=== PATIENT | female | born 1940 | race Caucasian/White ===

== ENCOUNTER 2016-12-07 21:29 | Inpatient (IN) | payer OTHER ==
--- NOTE | 2016-12-07 21:29 | EDPHY ---
H & P Time Seen by Provider: 12/07/16 21:30 Constitutional: Initial Vital Signs Temperature (C) 37.7 C 12/07/16 21:44 Heart Rate 104 H 12/07/16 21:44 Respiratory Rate 22 H 12/07/16 21:44 Blood Pressure 164/99 H 12/07/16 21:44 O2 Sat (%) 92 12/07/16 21:44 O2 Delivery Mode Nasal Cannula O2 (L/minute) 4 Allergies/Adverse Reactions: folic acid Allergy (Verified 12/07/16 21:55) thiamine (vitamin B1) Allergy (Verified 12/07/16 21:54) Medical Decision Making ED Course/Re-evaluation: CHIEF COMPLAINT: Dyspnea HISTORY OF PRESENT ILLNESS: This patient is a 76 year old female with history of COPD who presents to the Emergency Department by EMS after her family witnessed worsening dyspnea with productive cough this afternoon. She tells me that she feels that she has been getting a cold over the past few days and reports intermittent chills and bilateral lower leg pain. She also reports leg weakness causing her to collapse twice today. She denies urinary complaints. She did have a flu shot this year and has a pneumonia vaccine previously. REVIEW OF SYSTEMS: A 10 point review of systems was performed and is negative with the exception of the elements mentioned in the history of present illness. PHYSICAL EXAM: HR 104, BP 164/99, O2 Sat 92%, RR 22. Temp noted General Appearance: Alert, well hydrated, and appropriate. Head: Atraumatic without scalp tenderness or obvious injury Eyes: Pupils equal, round, reactive to light and accommodation, EOMI, no trauma , no injection. Ears: Clear bilaterally, no perforation, normal landmarks Nose: Atraumatic, no rhinorrhea, clear. Throat: There is no erythema or exudates, no lesions, normal tonsils, mucus membranes moist. Neck: Supple, 2+ carotid upstroke, nontender, no lymphadenopathy. Respiratory: Inspiratory and expiratory wheezes and coarse rhonchi throughout. Cardiovascular: Regular rate and rhythm, no murmurs, rubs, or gallops. Bilateral carotid, radial, dorsalis pedis, and posterior tibial pulses intact. Good capillary refill all extremities. Gastrointestinal: Abdomen is soft, nontender, non-distended, no masses, no rebound, no guarding, no peritoneal signs. Musculoskeletal: Normal active ROM of all extremities, atraumatic. Neurological: Alert, appropriate, and interactive. The patient has normal DTRs and non-focal cranial nerves, motor, sensory, and cerebellar exam. Skin: No rashes, good turgor, no nodules on palpation. Past medical history: COPD, emphysema, chronic low back pain with sciatic pain. Past surgical history: Denies. Family history: Non-contributory. Social history: Smokes regularly 0.5 pack daily. DIAGNOSTICS/PROCEDURES/CRITICAL CARE TIME: IMAGING: Study: X-ray of the chest Indication: Dyspnea Results: Chest x-ray was obtained. The results of the study are: The study was read by the radiologist, . I viewed the images myself on the PACS system. DIFFERENTIAL DIAGNOSIS: The differential diagnosis for the patient's shortness of breath included but was not limited to pneumonia, bronchitis, myocardial infarction, COPD exacerbation, high altitude pulmonary edema, congestive heart failure, and pulmonary embolus. MEDICAL DECISION MAKING: This patient is a 66 year old female with history of COPD and emphysema who arrives by EMS for worsening dyspnea over the past 2-3 days. She reports a productive cough, intermittent chills, and nasal congestion. On exam, she has wheezes and coarse rhonchi throughout. She is tachypneic with a respiratory rate of 22, tachycardic at 104, and hypertensive at 164/99. Will proceed with DuoNeb and steroid treatment for dyspnea and obtain labs (including sepsis workup) and chest x-ray for further evaluation. 2131: Took EMS report at bedside: O2 saturation at 92% on nasal cannula, up to 98% with continuous nebulizer treatment in transport. She reports that this is at baseline for her. 10 mg of IV Decadron and DuoNeb administered for dyspnea. Patient is not septic. Patient will be admitted due to hypoxemia and worsening difficulty in breathing in this patient with significant COPD and emphysema who is still a pack and half a day smoker. I have given this patient 1 g of ceftriaxone 500 mg of Zithromax. - Data Points Laboratory Results: Laboratory Results 12/07/16 21:40 12/07/16 12/07/16 12/07/16 21:50 21:40 21:40 PT 13.5 SEC SEC (12.0-15.0) INR 1.04 (0.83-1.16) APTT 21.3 SEC L SEC (23.0-38.0) VBG Lactic Acid 0.8 mmol/L mmol/L (0.7-2.1) Sodium 136 mEq/L mEq/L (134-144) Potassium 4.2 mEq/L mEq/L (3.5-5.2) Chloride 102 mEq/L mEq/L (97-110) Carbon Dioxide 21 mEq/l L mEq/l (22-31) Anion Gap 13 mEq/L mEq/L (8-16) BUN 16 mg/dL mg/dL (7-23) Creatinine 1.1 mg/dL H mg/dL (0.6-1.0) Estimated GFR 48 Glucose 114 mg/dL H mg/dL (70-100) Calcium 9.8 mg/dL mg/dL (8.5-10.4) Total Bilirubin 0.6 mg/dL mg/dL (0.1-1.4) Troponin I Pending NT-Pro-B Natriuret Pep Pending Medications Given: Discontinued Medications Albuterol/Ipratropium (Duoneb) 3 ml IH EDNOW ONE Stop: 12/07/16 21:36 Last Admin: 12/07/16 21:48 Dose: 3 ml Departure - Departure Disposition: [facility] Inpatient Acute Clinical Impression: Chronic obstructive pulmonary disease with acute exacerbation, Acute bronchitis Dyspnea Qualifiers: Dyspnea type: shortness of breath Qualified Code(s): R06.02 - Shortness of breath Condition: Fair Referrals: JOSE DE JESUS SNYDER MD [Other] - As per Instructions Report Scribed for: Kirk Flores Report Scribed by: Ladonna Calderón Date of Report: 12/07/16 Time of Report: 21:30
[2016-12-07] MEDS ORDERED: IPRATROPIUM/ALBUTEROL 3 ML DEYVIAL IH ONE (21:35)
[2016-12-07] MEDS ORDERED: DEXAMETHASONE 10 MG/ML VIAL IVP ONE (22:00)
[2016-12-07 22:03] LABS: ANION GAP 13 mEq/L (8-16); BILIRUBIN,TOTAL 0.6 mg/dL (0.1-1.4); CALCIUM 9.8 mg/dL (8.5-10.4); CARBON DIOXIDE 21 mEq/l (22-31); CHLORIDE 102 mEq/L (97-110); CREATININE 1.1 mg/dL (0.6-1.0); GLOMERULAR FILTRATION RATE 48; GLUCOSE 114 mg/dL (70-100); INR 1.04 (0.83-1.16); POTASSIUM 4.2 mEq/L (3.5-5.2); PROTIME(PATIENT) 13.5 SEC (12.0-15.0); SODIUM 136 mEq/L (134-144)
[2016-12-07 22:04] LABS: APTT 21.3 SEC (23.0-38.0)
[2016-12-07] MEDS ORDERED: AZITHROMYCIN IV 500 MG in D5W 250 ML IV ONE (22:08)
[2016-12-07 22:15] LABS: TROPONIN I 0.021 ng/mL (0-0.034)
[2016-12-07 22:37] LABS: % IMMATURE GRANULYOCYTES 0.4 % (0.0-1.1); ABSOLUTE IMMATURE GRANULOCYTES 0.02 10^3/uL (0.00-0.10); ADD DIFF? NO; ADD MORPH? NO; ADD SCAN? NO; ATYPICAL LYMPHOCYTE FLAG 10 (0-99); FRAGMENT RBC FLAG 0 (0-99); HEMATOCRIT 39.1 % (38.0-47.0); HEMOGLOBIN 12.9 g/dL (12.6-16.3); LEFT SHIFT FLG 0 (0-99); LIPEMIA HEMOLYSIS FLAG 80 (0-99); MEAN CELL HEMOGLOBIN 28.4 pg (27.9-34.1); MEAN CELL VOLUME 86.1 fL (81.5-99.8); MEAN PLATELET VOLUME 9.8 fL (8.7-11.7); PLATELET CLUMPS FLAG 0 (0-99); PLATELET COUNT 247 10^3/uL (150-400); RED BLOOD CELL COUNT 4.54 10^6/uL (4.18-5.33); RED CELL DISTRIBUTION WIDTH 14.4 % (11.5-15.2)
--- NOTE | 2016-12-07 23:00 | CPEKG ---
Heart Rate: 92 RR Interval: 652 P-R Interval: 160 QRSD Interval: 90 QT Interval: 360 QTC Interval: 446 P [place]: 75 QRS [place]: -55 T Wave [place]: 66 EKG Severity - ABNORMAL ECG - EKG Impression: SINUS RHYTHM EKG Impression: ATRIAL PREMATURE COMPLEX EKG Impression: LEFT ANTERIOR FASCICULAR BLOCK Electronically Signed By: Stephen Kruse 08-Dec-2016 14:20:20
[2016-12-07] MEDS ORDERED: ONDANSETRON 4 MG/2 ML VIAL IVP PRN (23:04)
[2016-12-07] MEDS ORDERED: ONDANSETRON DISINTEGRATING 4 MG TAB PO PRN (23:04)
[2016-12-07] MEDS ORDERED: ACETAMINOPHEN 325 MG TAB PO PRN (23:04)
[2016-12-07] MEDS ORDERED: ALBUTEROL 3 ML DEYVIAL IH PRN (23:07)
[2016-12-07] MEDS ORDERED: D50W 25 GM/50 ML SYR IVP PRN (23:10)
[2016-12-08] MEDS ORDERED: TEMAZEPAM 15 MG CAP ONE (02:27)
--- NOTE | 2016-12-08 03:33 | PDGENHP ---
History and Physical - Chief Complaint increasing shortness of breath - History of Present Illness Patient was seen and examined on 12/07/2016. Patient a 76-year-old female with history of COPD, chronic respiratory failure on 3 L NC continuously, active tobacco use, hypertension, hyperlipidemia, DM2 and chronic lower back pain who presents to the ED with complaint of increasing shortness of breath. Patient states symptoms started about 2 or 3 days ago when she noticed increasing dyspnea with exertion and cough with increased sputum production. Symptoms were initially responsive to her home rescue albuterol inhaler, however over the past day she has been requiring it more frequently. She has also had to increase her O2 from 3 to 4 L due to low oxygen saturations. she denies any obvious fevers, chills, chest pain, abdominal pain, nausea, vomiting, diarrhea or urinary symptoms. She also denies any recent travel or sick contacts. In addition, patient is also complaining of generalized weakness especially of her lower extremities which has been chronic and due to increasing sciatic pain. The pain is worse on her left side radiating from her left lower back down her lateral thigh. On the day of presentation, patient reports she had fallen due to weakness/ pain in her lower extremities. She denies any incontinence, saddle anesthesia or obvious trauma to the area, feels it is a progression of her chronic pain. On arrival to the ED patient was afebrile, in mild to moderate respiratory distress with tachypnea, hypoxia and tachycardia. She was given IV steroids, nebulizer treatment and respiratory status improved significantly. Chest x-ray did not reveal any obvious infiltrate. Labs were also negative for leukocytosis and lactic acid was negative. Patient was then admitted to the hospitalist service for further History Information - Allergies/Home Medication List Allergies/Adverse Reactions: folic acid Allergy (Verified 12/07/16 22:18) Flushing thiamine (vitamin B1) Allergy (Verified 12/07/16 22:18) Rash Home Medications: Albuterol [Proventil Inhaler HFA (*)] 1 - 2 puffs IH Q4H PRN 12/07/16 [Last Taken 12/07/16] Alendronate Sodium [Fosamax 70 MG (*)] 70 mg PO SA@0700 12/07/16 [Last Taken ] Baclofen [Baclofen 10 mg (*)] 10 mg PO DAILY 12/07/16 [Last Taken 12/07/16] DULoxetine [Cymbalta 30 MG (*)] 30 mg PO DAILY 12/07/16 [Last Taken 12/07/16] Fenofibric Acid (Choline) [TRILIPIX] 135 mg PO DAILY 12/07/16 [Last Taken ] Losartan Potassium [Cozaar 50 mg (*)] 50 mg PO DAILY 12/07/16 [Last Taken ] Potassium Cl [Klor-Con 20 meq (*)] 20 meq PO DAILY 12/07/16 [Last Taken 12/07/16 ] Promethazine HCl [Phenergan 12.5mg tab] 12.5 mg PO DAILY PRN 12/07/16 [Last Taken 11/23/16] Simvastatin [Zocor] 10 mg PO DAILY 12/07/16 [Last Taken 12/07/16] Temazepam [Restoril 15 MG (*)] 15 mg PO HS 12/07/16 [Last Taken 12/06/16] Tiotropium Inhaler [Spiriva Handihaler] 18 mcg IH DAILY 12/07/16 [Last Taken ] metFORMIN HCL [Glucophage 500 mg (*)] 500 mg PO DAILY 12/07/16 [Last Taken 12/07] I have personally reviewed and updated: family history, medical history, social history, surgical history - Past Medical History Additional medical history: COPD. Chronic respiratory failure on 3 L continuous O2. HTN. HLD. DM 2 on oral meds only. chronic lower back pain, lumbar radiculopathy L worse than R - Surgical History Additional surgical history: 2 lumbar surgeries. R foot repair. appendectomy. L wrist repair - Family History Additional family history: Daughter : CHF/CAD - Social History Smoking Status: Heavy smoker (2-3 PPD x 60 years) Alcohol Use: None Drug Use: None Additional social history: patient currently lives with her daughter and her son -in-law, uses a cane or walker to ambulate when outside of her home Review of Systems ROS: 10pt was reviewed & negative except for what was stated in HPI & below Physical Exam Temp Pulse Resp BP Pulse Ox 36.6 C 80 27 H 144/75 H 90 L 12/08/16 02:24 12/08/16 02:24 12/08/16 02:24 12/08/16 02:24 12/08/16 02:24 O2 (L/minute) 4 Constitutional: no apparent distress, appears nourished, not in pain, obese Eyes: PERRL, anicteric sclera, EOMI Ears, Nose, Mouth, Throat: moist mucous membranes, hearing normal, ears appear normal, no oral mucosal ulcers Cardiovascular: regular rate and rhythym, no murmur, rub, or gallop, pulses symmetric bilaterally, No JVD, No edema Peripheral Pulses: 2+: dorsalis-pedis (R), dorsalis-pedis (L) Respiratory: no respiratory distress, no rales or rhonchi, expiratory wheeze Gastrointestinal: normoactive bowel sounds, soft, non-tender abdomen, no palpable masses, No guarding, No rebound, No distension Genitourinary: no bladder fullness, no bladder tenderness Skin: warm, normal color, no rashes or abrasions, no fluctuance, no induration, No mottled Musculoskeletal: full muscle strength, no muscle tenderness, normal joint ROM, no joint effusions Neurologic: AAOx3, sensation intact bilaterally, CN II-XII Intact, No weakness, No numbness, No facial droop Psychiatric: interacting appropriately, not anxious, not encephalopathic, thought process linear Lab Data & Imaging Review 12/08/16 04:56 12/07/16 21:40 WBC 5.11 10^3/uL (3.80-9.50) 12/07/16 22:30 RBC 4.54 10^6/uL (4.18-5.33) 12/07/16 22:30 Hgb 12.9 g/dL (12.6-16.3) 12/07/16 22:30 Hct 39.1 % (38.0-47.0) 12/07/16 22:30 MCV 86.1 fL (81.5-99.8) 12/07/16 22:30 MCH 28.4 pg (27.9-34.1) 12/07/16 22:30 MCHC 33.0 g/dL (32.4-36.7) 12/07/16 22:30 RDW 14.4 % (11.5-15.2) 12/07/16 22:30 Plt Count 247 10^3/uL (150-400) 12/07/16 22:30 MPV 9.8 fL (8.7-11.7) 12/07/16 22:30 Neut % (Auto) 66.1 % (39.3-74.2) 12/07/16 22:30 Lymph % (Auto) 18.4 % (15.0-45.0) 12/07/16 22:30 [place] % (Auto) 14.7 % (4.5-13.0) H 12/07/16 22:30 Eos % (Auto) 0.0 % (0.6-7.6) L 12/07/16 22:30 Baso % (Auto) 0.4 % (0.3-1.7) 12/07/16:30 Nucleat RBC Rel Count 0.0 % (0.0-0.2) 12/07/16 22:30 Absolute Neuts (auto) 3.38 10^3/uL (1.70-6.50) 12/07/16 22:30 Absolute Lymphs (auto) 0.94 10^3/uL (1.00-3.00) L 12/07/16 22:30 Absolute Monos (auto) 0.75 10^3/uL (0.30-0.80) 12/07/16 22:30 Absolute Eos (auto) 0.00 10^3/uL (0.03-0.40) L 12/07/16 22:30 Absolute Basos (auto) 0.02 10^3/uL (0.02-0.10) 12/07/16 22:30 Absolute Nucleated RBC 0.00 10^3/uL (0-0.01) 12/07/16 22:30 Immature Gran % 0.4 % (0.0-1.1) 12/07/16 22:30 Immature Gran # 0.02 10^3/uL (0.00-0.10) 12/07/16 22:30 PT 13.5 SEC (12.0-15.0) 12/07/16 21:40 INR 1.04 (0.83-1.16) 12/07/16 21:40 APTT 21.3 SEC (23.0-38.0) L 12/07/16:40 VBG Lactic Acid 0.8 mmol/L (0.7-2.1) 12/07/16 21:50 Sodium 136 mEq/L (134-144) 12/07/16 21:40 Potassium 4.2 mEq/L (3.5-5.2) 12/07/16 21:40 Chloride 102 mEq/L (97-110) 12/07/16 21:40 Carbon Dioxide 21 mEq/l (22-31) L 12/07/16 21:40 Anion Gap 13 mEq/L (8-16) 12/07/16 21:40 BUN 16 mg/dL (7-23) 12/07/16 21:40 Creatinine 1.1 mg/dL (0.6-1.0) H 12/07/16 21:40 Estimated GFR 48 12/07/16 21:40 Glucose 114 mg/dL (70-100) H 12/07/16 21:40 Calcium 9.8 mg/dL (8.5-10.4) 12/07/16 21:40 Total Bilirubin 0.6 mg/dL (0.1-1.4) 12/07/16 21:40 Troponin I 0.021 ng/mL (0-0.034) 12/07/16 21:40 NT-Pro-B Natriuret Pep 787 pg/mL (0-450) H 12/07/16 21:40 Visualized and Interpreted Chest x-ray results: Yes Chest X-Ray results: no infiltrate, other ( Mild pulmonary edema) Visualized and Interpreted EKG results: Yes EKG Interpretation: Positive for: normal sinsus rhythm Assessment & Plan Assessment: patient is a 76-year-old female with history of COPD, on chronic home O2, active tobacco use who presents to the ED with complaint of increasing shortness of breath and cough. Symptoms appear consistent with an acute COPD exacerbation. Plan: # acute on chronic respiratory failure Given patient's presentation with tachypnea, wheezing and respiratory distress that improved significantly with IV steroids and nebulizer treatments, acute respiratory failure appears consistent with an acute COPD exacerbation. Given elevated BNP, differential also includes acute CHF / fluid overload, however patient denies history of CHF. Will treat for COPD exacerbation with PO steroids, continuous and prn nebs as well as supplemental O2. Will also check TTE and consider initiating diuresis. # active, continuous tobacco use Patient was advised extensively on the risks of continued tobacco use especially with continuous O2 use. She expressed understanding of the risks. She was also offered nicotine replacement therapy, however has declined at this time. # chronic lumbar radiculopathy Patient reports chronic left-sided sciatic pain that has significantly worsened recently. She has no red flag signs or symptoms on exam during this presentation, and is nonfocal. Will obtain PT OT consult for further ambulatory recommendations. # chronic hypertension BP slightly elevated on presentation, however, likely due to acute respiratory distress and has stabilized. Will confirm and continue home meds. # DM2 Will monitor FS TIDAC and cover with sliding scale insulin. # dispo: admit to inpatient service for likely > 2 [place] stay # gen: Diabetic diet DVT ppx: lovenox DNR
[2016-12-08 05:32] LABS: % IMMATURE GRANULYOCYTES 0.3 % (0.0-1.1); ABSOLUTE IMMATURE GRANULOCYTES 0.01 10^3/uL (0.00-0.10); ADD DIFF? NO; ADD MORPH? NO; ADD SCAN? NO; ATYPICAL LYMPHOCYTE FLAG 0 (0-99); FRAGMENT RBC FLAG 0 (0-99); HEMATOCRIT 38.3 % (38.0-47.0); HEMOGLOBIN 12.8 g/dL (12.6-16.3); LEFT SHIFT FLG 0 (0-99); LIPEMIA HEMOLYSIS FLAG 80 (0-99); MEAN CELL HEMOGLOBIN 28.8 pg (27.9-34.1); MEAN CELL HEMOGLOBIN CONCENTR. 33.4 g/dL (32.4-36.7); MEAN CELL VOLUME 86.1 fL (81.5-99.8); MEAN PLATELET VOLUME 10.3 fL (8.7-11.7); PLATELET CLUMPS FLAG 0 (0-99); PLATELET COUNT 242 10^3/uL (150-400); RED BLOOD CELL COUNT 4.45 10^6/uL (4.18-5.33); RED CELL DISTRIBUTION WIDTH 14.5 % (11.5-15.2)
[2016-12-08 05:50] LABS: MAGNESIUM 1.8 mg/dL (1.6-2.3)
[2016-12-08] MEDS: IPRATROPIUM/ALBUTEROL 3 ML DEYVIAL IH SCH ×4 (05:56→21:20)
[2016-12-08 06:02] LABS: TROPONIN I 0.018 ng/mL (0-0.034)
[2016-12-08] MEDS ORDERED: AZITHROMYCIN IV 500 MG in D5W 250 ML IV SCH (09:00)
[2016-12-08] MEDS ORDERED: predniSONE 20 MG TAB PO SCH (09:00)
[2016-12-08] MEDS: oxyCODONE IR 5 MG TAB PO PRN ×2 (09:38→12:30)
[2016-12-08] MEDS: AZITHROMYCIN 250 MG TAB PO SCH (09:41)
[2016-12-08] MEDS: DULoxetine 30 MG CAP PO SCH (09:42)
[2016-12-08] MEDS: BACLOFEN 10 MG TAB PO SCH (09:42)
[2016-12-08] MEDS: PRAVASTATIN SODIUM 20 MG TAB PO SCH (09:43)
[2016-12-08] MEDS: FENOFIBRATE 145 MG TAB PO SCH (09:43)
[2016-12-08] MEDS: ENOXAPARIN 40 MG/0.4 ML SYR SC SCH (09:43)
[2016-12-08] MEDS: LOSARTAN POTASSIUM 50 MG TAB PO SCH (09:50)
[2016-12-08] MEDS: INSULIN LISPRO 100 UNIT/ML SC SCH ×3 (09:53→18:21)
[2016-12-08] MEDS: TIOTROPIUM INHALER 18 MCG/DOSE 5 DOSE/MDI IH SCH (10:34)
[2016-12-08] MEDS ORDERED: TEMAZEPAM 15 MG CAP PO PRN (11:24)
[2016-12-08] MEDS ORDERED: CARBAMIDE PEROXIDE 15 ML BOTTLE RTEAR SCH (12:15)
[2016-12-08 12:52] LABS: HEMOGLOBIN A1C 5.9 % (4.0-6.0)
[2016-12-08 12:58] LABS: GLUCOSE 194 mg/dL (70-100)
--- NOTE | 2016-12-08 16:50 | HOSPPROG ---
Hospitalist Progress Note Assessment/Plan: #COPD exacerbation: likely due to bronchitis. Check influenza. Cont Azithro, pred, duonebs #Impacted right ear: cerumen on exam. Trial debrox gtts #Controlled DM with hyperglycemia;: due to steroids. SSI #Low TSH: normal T4, minimally lowered T3. Repeat enzymes in 2-3 weeks. If still low, can do U/S Subjective: feeling less SOB today Objective: Vital Signs Temp Pulse Resp BP Pulse Ox 36.7 C 63 16 146/74 H 94 12/08/16 15:07 12/08/16 16:20 12/08/16 16:20 12/08/16 15:07 12/08/16 16:20 Laboratory Results 12/08/16 04:56 12/08/16 12:20 12/07/16 12/08/16 12/09/16 05:59 05:59 05:59 Intake Total 300 250 Balance 300 250 PT 13.5 SEC (12.0-15.0) 12/07/16 21:40 INR 1.04 (0.83-1.16) 12/07/16 21:40 - Physical Exam Constitutional: no apparent distress Eyes: PERRL Ears, Nose, Mouth, Throat: other (significant cerumen right ear canal) ICD10 Worksheet Patient Problems: Problems Problem Status Onset Acute bronchitis Acute Chronic obstructive pulmonary disease with acute exacerbation Acute Dyspnea Acute
--- NOTE | 2016-12-08 17:11 | ECHO ---
[id number] + + [address] : : [place] [id number] : : [phone] + + Adult Echocardiographic Report + + :Name: ALONDRA OROZCO MStudy Date: 12/08/2016 10:37 AM BP: 133/69 mmHg : : Hospital Admission Number: [id number] Lo cation: 386: :: 1940 Gender: Female Height: 65 in : :Age: 76 yrs Race: Weight: 18 5 lb : :Reason For Study: r/o cardiomyopathy : : BSA: 1.9 m eters2 : :History: elev BNP : + + MMode/2D Measurements \T\ Calculations IVSd: 1.2 cm RVDd: 2.3 cm FS: 37.0 % Ao root diam: LVPWd: 1.1 cm LVIDd: 3.7 cm EDV(Teich): 2.5 cm LVIDs: 2.4 cm 59.6 ml LA dimension: ESV(Teich): 3.4 cm 19.3 ml EF(Teich): 67.7 % LVLd ap4: 9.2 cm SV(MOD-sp4): EDV(MOD-sp4): 103.0 ml 147.0 ml LVLs ap4: 7.2 cm ESV(MOD-sp4): 44.0 ml EF(MOD-sp4): 70.1 % Normal Measurement Values: + + :LVIDd (3.5-5.7cm) IVSd (0.6-1.1cm) LVPWd (0.6-1.1cm) Aortic Root (2.0-3.7cm)Left Atrium (1.5-4.0cm): :LV Vol(d) (76-115ml) LV Vol(s) (29-48ml) Ejec Fraction (50-65%)PV Varghese (0.6- 1.2m/s) TV Varghese (0.4-1.0m/s) : :MV E [place]arg[place]se (0.8-1.0m/s)MV A [place]se (0.3-1.0m/s)LVOT V[place]se (0.7-1.2m/s) Asc Ao Varghese ( 0.9-1.8m/s) : + + Doppler Measurements \T\ Calculations MV E max varghese: Ao V2 max: LV V1 max: PA V2 max: 85.4 cm/sec 161.0 cm/sec 106.1 cm/sec 115.4 cm/sec MV A max varghese: Ao max PG: LV V1 max PG: PA max P.0 cm/sec 10.4 mmHg 4.5 mmHg 5.3 mmHg MV E/A: 0.72 MV dec time: 0.21 sec Left Ventricle The left ventricle is normal in size and function. There is mild concentric left ventricular hypertrophy. Ejection Fraction = 65-70%. There is Doppler evidence for diastolic dysfunction. No regional wall motion abnormalities noted. Right Ventricle The right ventricle is normal in size and function. Atria The left atrial size is normal. Right atrial size is normal. Mitral Valve The mitral valve is normal in structure and function. There is no mitral valve stenosis. There is trace to mild mitral regurgitation. Tricuspid Valve The tricuspid valve is normal in structure and function. There is no tricuspid stenosis. There is trace tricuspid regurgitation. Aortic Valve Most likely trileaflet. There is no aortic stenosis. There is no aortic insufficiency. Pulmonic Valve The pulmonic valve is not well visualized. Great Vessels The aortic root is normal size. Pericardium/Pleural There is no pericardial effusion. Conclusion A two-dimensional transthoracic echocardiogram with M-mode and Doppler was performed. The left ventricle is normal in size and function. There is mild concentric left ventricular hypertrophy. Ejection Fraction = 65-70%. There is Doppler evidence for diastolic dysfunction. Trace to mild mitral regurgitation and trace tricuspid regurgitation. Final Reading Physician: Ryan Ibarra, Melectronically signed on 12/08/2016 05:09 PM Ordering Physician: Isabell Alcantar Performed By: Aspen Cardona
[2016-12-08 17:59] LABS: COLOR YELLOW; LEUKOCYTE ESTERASE,URINE NEGATIVE (NEGATIVE); NITRITE,URINE NEGATIVE (NEGATIVE)
[2016-12-08 18:10] LABS: BACTERIA TRACE /hpf (NONE SEEN); MUCUS TRACE /lpf (NONE-1+)
[2016-12-08] MEDS ORDERED: TEMAZEPAM 15 MG CAP PO SCH (21:00)
[2016-12-08] MEDS: CARBAMIDE PEROXIDE 15 ML BOTTLE RTEAR SCH (22:47)
[2016-12-09] MEDS: OSELTAMIVIR PHOSPHATE 75 MG CAP PO SCH ×2 (00:42→09:37)
[2016-12-09] MEDS ORDERED: guaiFENesin 600 MG TAB.ER PO SCH (05:00)
[2016-12-09] MEDS: oxyCODONE IR 5 MG TAB PO PRN (05:14)
[2016-12-09] MEDS: IPRATROPIUM/ALBUTEROL 3 ML DEYVIAL IH SCH ×2 (05:31→10:08)
[2016-12-09 06:08] LABS: % IMMATURE GRANULYOCYTES 0.2 % (0.0-1.1); ABSOLUTE IMMATURE GRANULOCYTES 0.01 10^3/uL (0.00-0.10); ADD DIFF? NO; ADD MORPH? NO; ADD SCAN? NO; ATYPICAL LYMPHOCYTE FLAG 0 (0-99); FRAGMENT RBC FLAG 0 (0-99); HEMATOCRIT 38.1 % (38.0-47.0); HEMOGLOBIN 11.8 g/dL (12.6-16.3); LEFT SHIFT FLG 0 (0-99); LIPEMIA HEMOLYSIS FLAG 80 (0-99); MEAN CELL HEMOGLOBIN 28.2 pg (27.9-34.1); MEAN CELL VOLUME 90.9 fL (81.5-99.8); MEAN PLATELET VOLUME 10.1 fL (8.7-11.7); PLATELET CLUMPS FLAG 0 (0-99); PLATELET COUNT 219 10^3/uL (150-400); RED BLOOD CELL COUNT 4.19 10^6/uL (4.18-5.33); RED CELL DISTRIBUTION WIDTH 14.2 % (11.5-15.2)
[2016-12-09 06:32] LABS: ALANINE AMINOTRANSFERASE 27 IU/L (9-52); ALBUMIN 3.4 g/dL (3.5-5.0); ALKALINE PHOSPHATASE 59 IU/L (38-126); ANION GAP 12 mEq/L (8-16); ASPARTATE AMINOTRANSFERASE 22 IU/L (14-46); BILIRUBIN,TOTAL 0.4 mg/dL (0.1-1.4); CALCIUM 9.5 mg/dL (8.5-10.4); CARBON DIOXIDE 21 mEq/l (22-31); CHLORIDE 108 mEq/L (97-110); CREATININE 0.9 mg/dL (0.6-1.0); GLOMERULAR FILTRATION RATE > 60; GLUCOSE 102 mg/dL (70-100); POTASSIUM 4.3 mEq/L (3.5-5.2); SODIUM 141 mEq/L (134-144); TOTAL PROTEIN 6.3 g/dL (6.3-8.2)
[2016-12-09] MEDS ORDERED: predniSONE 20 MG TAB PO SCH (09:00)
[2016-12-09] MEDS: INSULIN LISPRO 100 UNIT/ML SC SCH ×2 (09:23→15:17)
[2016-12-09] MEDS: CARBAMIDE PEROXIDE 15 ML BOTTLE RTEAR SCH (09:33)
[2016-12-09] MEDS: ENOXAPARIN 40 MG/0.4 ML SYR SC SCH (09:35)
[2016-12-09] MEDS: LOSARTAN POTASSIUM 50 MG TAB PO SCH (09:37)
[2016-12-09] MEDS: BACLOFEN 10 MG TAB PO SCH (09:37)
[2016-12-09] MEDS: PRAVASTATIN SODIUM 20 MG TAB PO SCH (09:37)
[2016-12-09] MEDS: FENOFIBRATE 145 MG TAB PO SCH (09:38)
[2016-12-09] MEDS: DULoxetine 30 MG CAP PO SCH (09:39)
[2016-12-09] MEDS: AZITHROMYCIN 250 MG TAB PO SCH (09:40)
[2016-12-09] MEDS: TIOTROPIUM INHALER 18 MCG/DOSE 5 DOSE/MDI IH SCH (10:08)
[2016-12-09 11:32] VITALS: BP 149/72; PULSE 86; RESP 16; TEMP 97.9; O2SAT 91
--- NOTE | 2016-12-09 12:49 | HOSPPROG ---
Hospitalist Progress Note Assessment/Plan: #COPD exacerbation: likely due to Influenza B. Cont , pred, duonebs #Influenza B: Tamiflu x 5 days #Impacted right ear: cerumen on exam. Trial debrox gtts #Controlled DM with hyperglycemia;: due to steroids. SSI #Low TSH: normal T4, minimally lowered T3. Repeat enzymes in 2-3 weeks. If still low, can do U/S #DC today Objective: Vital Signs Temp Pulse Resp BP Pulse Ox 36.6 C 86 16 149/72 H 91 L 12/09/16 11:30 12/09/16 11:30 12/09/16 11:30 12/09/16 11:30 12/09/16 11:30 Laboratory Results 12/09/16 05:36 12/09/16 05:36 12/08/16 12/09/16 12/10/16 05:59 05:59 05:59 Intake Total 300 690 Output Total 1750 Balance 300 -1060 PT 13.5 SEC (12.0-15.0) 12/07/16 21:40 INR 1.04 (0.83-1.16) 12/07/16 21:40 - Physical Exam Constitutional: no apparent distress Eyes: PERRL Ears, Nose, Mouth, Throat: moist mucous membranes Cardiovascular: regular rate and rhythym Respiratory: no respiratory distress, other (improved air movement, mild expiratory wheezing) Gastrointestinal: normoactive bowel sounds Genitourinary: no bladder fullness Musculoskeletal: full muscle strength Neurologic: AAOx3 Psychiatric: interacting appropriately ICD10 Worksheet Patient Problems: Problems Problem Status Onset Acute bronchitis Acute Chronic obstructive pulmonary disease with acute exacerbation Acute Dyspnea Acute
--- NOTE | 2016-12-09 13:23 | GDS ---
[f rep st] DISCHARGE SUMMARY DISCHARGE DIAGNOSES: 1. Chronic obstructive pulmonary disease exacerbation 2. acute on chronic hypoxemia with respiratory failure. 3. Influenza B. 4. Chronic lumbar radiculopathy. 5. Benign hypertension. 6. Controlled diabetes type 2. 7. Tobacco use. 8. Hyperlipidemia. HISTORY OF PRESENT ILLNESS: Patient is a 76-year-old female with a history of COPD, chronic respiratory failure on 3 L, and tobacco use, who presents to the ED with increasing shortness of breath. Symptoms started 2 days ago when she noticed dyspnea with exertion, cough, and increased sputum production. Symptoms were initially responsive to home rescue inhaler; however, she has had to use it more frequently and increase her O2 from 3-4 L. She denies fevers, chills, sweats, chest pain. No nausea, vomiting, or diarrhea. She does report generalized weakness in her lower extremities. HOSPITAL COURSE BY PROBLEM: 1. COPD exacerbation: Secondary to influenza B. The patient was requiring increased oxygen needs and DuoNeb. Day of discharge, she states that she feels at her baseline and would like to go home. We will continue 3 more days of prednisone. She is to resume her home inhalers. I emphasized the importance of smoking cessation. 2. Influenza B: This was checked the second day of admission. We will treat with Tamiflu for 5 days' total. 3. [id number]-wa-tjburro hypoxemic respiratory failure: Again, secondary to COPD exacerbation. Patient is stable on her home 3 L. 4. Deconditioning: PT/OT recommends home physical therapy. Will arrange for this if the patient agrees. 5. Chronic back pain: Continue home medications. 6. Cough: Due to influenza. P.r.n. guaifenesin and Robitussin. 7. Controlled diabetes: Continue home medications. 8. Benign hypertension: Stable. 9. Subclinical hyperthyroidism: no symptoms. mildly low TSH/ T3, T4 normal. Repeat in 4 weeks DISPOSITION: Patient is stable for discharge. NEW MEDICATIONS: Tamiflu, Robitussin, and guaifenesin. FU: repeat thyroid studies /[id number]/MODL MTDD
--- NOTE | 2016-12-09 14:19 | PDIAF ---
- Diagnosis Code Status: Do Not Resuscitate - Medication Management Discharge Medications: Medications to Continue on Transfer Albuterol [Proventil Inhaler HFA (*)] 1 - 2 puffs IH Q4H PRN 12/07/16 [Last Taken 12/07/16] Alendronate Sodium [Fosamax 70 MG (*)] 70 mg PO SA@0700 12/07/16 [Last Taken ] Baclofen [Baclofen 10 mg (*)] 10 mg PO DAILY 12/07/16 [Last Taken 12/07/16] DULoxetine [Cymbalta 30 MG (*)] 30 mg PO DAILY 12/07/16 [Last Taken 12/07/16] Fenofibric Acid (Choline) [TRILIPIX] 135 mg PO DAILY 12/07/16 [Last Taken ] Losartan Potassium [Cozaar 50 mg (*)] 50 mg PO DAILY 12/07/16 [Last Taken ] Potassium Cl [Klor-Con 20 meq (*)] 20 meq PO DAILY 12/07/16 [Last Taken 12/07/16 ] Promethazine HCl [Phenergan 12.5mg tab] 12.5 mg PO DAILY PRN 12/07/16 [Last Taken 11/23/16] Simvastatin [Zocor] 10 mg PO DAILY 12/07/16 [Last Taken 12/07/16] Temazepam [Restoril 15 MG (*)] 15 mg PO HS 12/07/16 [Last Taken 12/06/16] Tiotropium Inhaler [Spiriva Handihaler] 18 mcg IH DAILY 12/07/16 [Last Taken ] metFORMIN HCL [Glucophage 500 mg (*)] 500 mg PO DAILY 12/07/16 [Last Taken 12/07] Menthol [Robitussin Cough Drops] 1 each MM PRN PRN #15 lozenge 12/09/16 [Last Taken Unknown] Oseltamivir Phosphate [Tamiflu 75 mg (*)] 75 mg PO BIDMEAL #8 cap 12/09/16 [ Last Taken Unknown] guaiFENesin [Mucinex 600 MG (*)] 1,200 mg PO BID #20 tab.er 12/09/16 [Last Taken Unknown] predniSONE 40 mg PO DAILY #6 tablet 12/09/16 [Last Taken Unknown] Discharge Medications: Refer to the Discharge Home Medication list for PRN reason. - Orders Services needed: Home Care, Physical Therapy Home Care Face to Face: I certify that this patient was under my care and that I had the required [id number] encounter meeting the encounter requirements on the discharge day. My findings support the fact that the patient is homebound as defined in CMS Chapter 7 Medicare Benefits Manual 30.1.1, The condition of the patient is such that there exists a normal inability to leave home and consequently, leaving home would require a considerable and taxing effort. Diet Recommendation: cardiac -low fat low salt Diet Texture: Regular Texture Diet - Follow Up Care Current Providers and Referrals: JOSE DE JESUS SNYDER MD [Other] - As per Instructions
[2016-12-11] MEDS ORDERED: ALENDRONATE SODIUM 70 MG TAB PO SCH (07:00)
== END 2016-12-09 15:22 | disposition home health service (06) | DRG 190 ==
LOC: OBSVTOIN 22:52 → F3E 12-08 01:30
PROVIDERS: ADMIT Internal Medicine; ATTEND Internal Medicine
DX: J44.1 Chronic obstructive pulmonary disease with (acute) exacerbation (principal); J44.0 Chronic obstructive pulmonary disease with (acute) lower respiratory infection; J96.21 Acute and chronic respiratory failure with hypoxia; J10.1 Influenza due to other identified influenza virus with other respiratory manifestations; F17.210 Nicotine dependence, cigarettes, uncomplicated; J43.9 Emphysema, unspecified; Z99.81 Dependence on supplemental oxygen; I10 Essential (primary) hypertension; E78.5 Hyperlipidemia, unspecified; E11.65 Type 2 diabetes mellitus with hyperglycemia; M54.32 Sciatica, left side; H61.21 Impacted cerumen, right ear
CPT/HCPCS: 82947-QW; 84481-90; 97161-GP; G8978-GP-CI; G8979-GP-CI; J0456; J0696; J1650; J1815

== ENCOUNTER 2017-02-13 17:45 | Inpatient (IN) | payer OTHER, MEDICAID ==
[2017-02-13] MEDS ORDERED: ACETAMINOPHEN 650 MG SUPP PR ONE ×2 (17:59→18:01)
[2017-02-13] MEDS ORDERED: IPRATROPIUM/ALBUTEROL 3 ML DEYVIAL IH ONE (18:00)
[2017-02-13] MEDS ORDERED: IPRATROPIUM/ALBUTEROL 3 ML DEYVIAL ONE (18:01)
--- NOTE | 2017-02-13 18:03 | EDPHY ---
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 They were at an outside festival this afternoon the patient became diffusely weak, she had to be pushed in her walker chair, which is unusual for her. She has oxygen that she is post aware at all times but did not have it with her. Her daughter then noted that she was speaking gibberish, not making sense. Her daughter thought that she might have some facial weakness. Patient denies any headache. REVIEW OF SYSTEMS: A ten point review of systems was performed and is negative with the exception of the items mentioned in the HPI. Source: Family - Medical/Surgical History Hx Asthma: Yes Hx Chronic Respiratory Disease: Yes Hx Diabetes: Yes Hx Cardiac Disease: No Hx Renal Disease: No Hx Cirrhosis: No Hx Alcoholism: No Hx HIV/AIDS: No Hx Splenectomy or Spleen Trauma: No Other PMH: anxiety, COPD, HTN, high cholesterol, FIbromyalgia, depression, Diabetes, right ankle surgery, back surgery, breast cancer, left lumpectomy - Social History Smoking Status: Heavy smoker - Physical Exam Exam: General Appearance: Alert. Vital signs reviewed. Temperature 39.1, blood pressure, heart rate 106 Eyes: Pupils equal and round, no conjunctival injection, no discharge. Anicteric. ENT, Mouth: Mucous membranes are moist, no oropharyngeal erythema or edema. Dentures in place. Neck: No lymphadenopathy, supple. Respiratory: Diffuse wheezing, Cardiovascular: Regular rate and rhythm; no murmur, rub, or gallop. Gastrointestinal: Abdomen is soft and nontender, no masses or organomegaly, bowel sounds normal. Skin: Warm and dry, no rashes on exposed skin, normal color. Back: Nontender to palpation over the thoracolumbar spine. No CVAT. Extremities: No lower extremity edema, no calf tenderness or swelling. Neurological: Somewhat sleepy, answers questions and follows commands with some urging. VALDEZ. EOMI. Tongue midline. Left nasal labial fold diminished compared to right. Moving all 4 extremities spontaneously. She is able to the lift each leg off of the bed independently without drift. She has bilateral upper extremity drift after about 5 seconds. No unilateral weakness appreciated. Psychiatric: No agitation. Constitutional: Initial Vital Signs Temperature (C) 39.1 C H 02/13/17 17:52 Heart Rate 105 H 02/13/17 17:52 Respiratory Rate 17 02/13/17 17:52 Blood Pressure 181/98 H 02/13/17 17:52 O2 Sat (%) 92 02/13/17 17:52 O2 Delivery Mode Nasal Cannula O2 (L/minute) 3 Allergies/Adverse Reactions: folic acid Allergy (Verified 02/13/17 17:52) Flushing thiamine (vitamin B1) Allergy (Verified 02/13/17 17:52) Rash Home Medications: Medication Instructions Recorded Albuterol [Proventil Inhaler HFA 1 - 2 puffs IH Q4H PRN 12/07/16 (*)] Alendronate Sodium [Fosamax 70 MG 70 mg PO SA@0700 12/07/16 (*)] DULoxetine [Cymbalta 30 MG (*)] 30 mg PO DAILY 12/07/16 Fenofibric Acid (Choline) 135 mg PO DAILY 12/07/16 [TRILIPIX] Losartan Potassium [Cozaar 50 mg 50 mg PO DAILY 12/07/16 (*)] Potassium Cl [Klor-Con 20 meq (*)] 20 meq PO DAILY 12/07/16 Promethazine HCl [Phenergan 12.5mg 12.5 mg PO DAILY PRN 12/07/16 tab] Simvastatin [Zocor] 20 mg PO DAILY 12/07/16 Tiotropium Inhaler [Spiriva 18 mcg IH DAILY 12/07/16 Handihaler] guaiFENesin [Mucinex 600 MG (*)] 1,200 mg PO BID #20 tab.er 12/09/16 ALPRAZolam [Xanax 0.5 MG (*)] 0.5 mg PO HS PRN 02/14/17 Amlodipine Besylate [Norvasc] 5 mg PO DAILY 02/14/17 Budesonide/Formoterol 160/4.5 1 puffs IH BID 02/14/17 [Symbicort 160-4.5 Mcg Inh (*)] Paroxetine HCl 10 mg PO DAILY 02/14/17 Paroxetine HCl 20 mg PO DAILY 02/14/17 traZODone [traZODONE 100MG (*)] 150 mg PO HS 02/14/17 Amoxicillin/Clavulanate Pot 875 mg PO BID #10 tab 02/16/17 [Augmentin 875 MG TAB (*)] Medical Decision Making - Diagnostics Imaging Results: CT scan reported to me by Dr. Queen. He does not see an acute bleed or acute ischemia. 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 Single view CXR does not show pneumonia. CTA head and neck negative for acute finding. Imaging: Discussed imaging studies w/ orthopedically impaired teacher Radiologist ED Course/Re-evaluation: Patient re-evaluated at 6:30 p.m.. Her heart rate is now in the 80s. She continues to be hypertensive. Wheezing is markedly improved with better air exchange. She is able to tell me her name and states that she is in the hospital. She will follow simple commands. She seems to be diffusely weak in both upper extremities, possibly in the lower extremities although they seem somewhat stronger. I do not find anything focal at this point other than a flattening of her left nasolabial fold. 19:05 Reassessed pt. She is awake and responding with short answers. She sates she feels "like crap". Discussed chest x-ray results. Vital signs improved. Plan to place Ace catheter to obtain a urine sample for UA. 19:[address] Kendall, hospitalist, regarding admission. Patient has been examined every 30-45 minutes during her stay in the emergency department. Her vital signs normalized with the exception of her blood pressure which remained high. Her initial tachycardia resolved. She was given 1 g of Tylenol and repeat temperatures were within the normal range. She received 2 breathing treatments with some continued wheezing but improved air exchange. It is possible that her weakness and confusion prior to coming to the emergency department were related to hypoxia, however she has not been hypoxic in the department and the symptoms persist. Source of infection was not found. She does not appear to have a urinary tract infection. Single-view chest x-ray does not show a pneumonia. At 8:00 p.m. when I examined her I noted a change in her mental status. She had been somewhat lethargic but easily arousable by me and this continued to be the case. However she was no longer able to answer orientation questions. Her speech was not slurred, but it gibberish. I spoke with Dr. Benito with [facility] who recommend CT angiogram of the head and neck. CT angiogram results were phoned to me by Dr. Queen at 9:45 p.m. 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 This calcified plaque. There is no occlusion and no dissection. It is noted that there is no dural thickening and no leptomeningeal enhancement that might suggest meningitis. MRI will likely be needed to further evaluate her waxing and waning mental status. She required sedation with Ativan and fentanyl to undergo CT angiogram. She was given fentanyl because of her complaint of back pain, it is my understanding that this is a chronic complaint for her. She was re-evaluated when she returned from the CT angiograms. At that time she was sleeping. Her blood pressure was improved. She was taken from the emergency department to a bed in the step-down unit. The etiology of her encephalopathy remains somewhat unclear. This could be a viral infection. I have not found a source of infection. She has not been given antibiotics and although she had a temperature of 39.1 when she arrived, she has not had recurrent fever. He had struck his a possibility although it was not particularly hot outside today, however she is elderly and has comorbidities. I would not think that she would be so severely affected by the heat with a temperature below 40. I have not found electrolyte disturbance sufficient to cause encephalopathy. No evidence of CVA at this point in the work up. Hypoxia and medication side effect are other possible explanations. Differential Diagnosis: Fever in adults including but not limited to pneumonia, urinary tract infection , viral syndrome, and influenza. Critical Care Time: I spent a total of 60 minutes of critical care time in obtaining history, performing a physical exam, bedside monitoring of interventions, collecting and interpreting tests and discussion with consultants but not including time spent performing procedures. She was at risk of hemodynamic neurologic deterioration. - Data Points Laboratory Results: Laboratory Results 02/13/17 18:05 02/13/17 18:05 Medications Given: Discontinued Medications Acetaminophen (Tylenol Rectal) 650 mg WA EDNOW ONE Stop: 02/13/17 18:00 Last Admin: 02/13/17 18:09 Dose: 650 mg Acetaminophen (Tylenol) 650 mg PO Q4HRS PRN PRN Reason: Pain, Mild/Fever, Can Take PO Stop: 08/13/17 17:45 Last Admin: 02/15/17 20:11 Dose: 650 mg Albuterol/Ipratropium (Duoneb) 3 ml IH EDNOW ONE Stop: 02/13/17 18:01 Last Admin: 02/13/17 18:09 Dose: 3 ml Albuterol/Ipratropium (Duoneb) 3 ml IH Q4 PRN PRN Reason: WHEEZING Stop: 08/12/17 22:14 Last Admin: 02/14/17 11:10 Dose: 3 ml Alprazolam (Xanax) 0.5 mg PO HS PRN PRN Reason: Sleep/Insomnia Stop: 08/13/17 13:45 Last Admin: 02/14/17 21:19 Dose: 0.5 mg Amlodipine Besylate (Norvasc) 5 mg PO DAILY [facility] Stop: 08/13/17 13:59 Last Admin: 02/16/17 09:10 Dose: 5 mg Atorvastatin Calcium (Lipitor) 10 mg PO DAILY [facility] Stop: 08/14/17 08:59 Last Admin: 02/16/17 09:10 Dose: 10 mg Budesonide/Formoterol Fumarate (Symbicort 160-4.5 Mcg Inhaler) 1 puffs IH BID [facility] Stop: 08/13/17 13:59 Last Admin: 02/16/17 09:25 Dose: 1 puffs Duloxetine HCl (Cymbalta) 30 mg PO DAILY [facility] Stop: 08/13/17 13:59 Last Admin: 02/16/17 09:11 Dose: 30 mg Enoxaparin Sodium (Lovenox) 40 mg SC DAILY [facility] Stop: 08/13/17 13:59 Last Admin: 02/16/17 09:09 Dose: 40 mg Fentanyl (Sublimaze) 100 mcg IVP ONCE ONE Stop: 02/13/17 21:06 Last Admin: 02/13/17 21:05 Dose: 100 mcg Guaifenesin (Mucinex) 1,200 mg PO BID [facility] Stop: 08/13/17 20:59 Last Admin: 02/16/17 09:10 Dose: 1,200 mg Sodium Chloride (Ns) 1,000 mls @ 6,000 mls/hr IV ONCE ONE Stop: 02/13/17 19:43 Last Admin: 02/13/17 19:36 Dose: 1,000 mls Sodium Chloride (Ns) 1,000 mls @ 0 mls/hr IV ONCE ONE PRN Reason: Wide Open Stop: 02/13/17 19:37 Last Admin: 02/13/17 19:36 Dose: 1,000 mls Potassium Chloride/Dextrose/Sod Cl (D5w 1/2 Ns W/ 20 Kcl/L) 1,000 mls @ 100 mls /hr IV CONT DANTE Stop: 08/12/17 22:14 Last Admin: 02/14/17 14:35 Dose: 1,000 mls Ertapenem 1 gm/ Sodium (Chloride) 100 mls @ 200 mls/hr IV DAILY DANTE PRN Reason: Protocol Stop: 03/16/17 17:59 Last Admin: 02/15/17 07:45 Dose: 100 mls Lorazepam (Ativan Injection) 0.5 mg IVP EDNOW ONE Stop: 02/13/17 20:38 Last Admin: 02/13/17 20:42 Dose: 0.5 mg Lorazepam (Ativan Injection) 0.5 mg IVP ONCE ONE Stop: 02/13/17 20:56 Last Admin: 02/13/17 20:55 Dose: 0.5 mg Losartan Potassium (Cozaar) 50 mg PO DAILY [facility] Stop: 08/13/17 11:14 Last Admin: 02/16/17 09:11 Dose: 50 mg Losartan Potassium (Cozaar) 50 mg PO DAILY [facility] Stop: 08/14/17 08:59 Last Admin: 02/16/17 09:13 Dose: Not Given Paroxetine HCl (Paxil) 10 mg PO DAILY [facility] Stop: 08/14/17 08:59 Last Admin: 02/16/17 09:10 Dose: 10 mg Paroxetine HCl (Paxil) 20 mg PO DAILY [facility] Stop: 08/14/17 08:59 Last Admin: 02/16/17 09:10 Dose: 20 mg Potassium Chloride (Klor-Con) 20 meq PO DAILY [facility] Stop: 08/14/17 08:59 Last Admin: 02/16/17 09:10 Dose: 20 meq Tiotropium [place] (Spiriva Handihaler) 18 mcg IH DAILY [facility] Stop: 08/13/17 13:59 Last Admin: 02/16/17 09:25 Dose: 1 cap Trazodone HCl (Trazodone) 150 mg PO HS [facility] Stop: 08/13/17 20:59 Last Admin: 02/15/17 20:12 Dose: 150 mg Departure - Departure Disposition: [facility] Inpatient Acute Clinical Impression: Altered mental status Qualifiers: Altered mental status type: disorientation Qualified Code(s): R41.0 - Disorientation, unspecified Fever Qualifiers: Fever type: due to other condition Qualified Code(s): R50.81 - Fever presenting with conditions classified elsewhere Condition: Fair Report Scribed for: Tram Dutta Report Scribed by: Rody Husdon Date of Report: 02/13/17 Time of Report: 19:36 Physician Review and Approval Statement: 02/16/17 16:35 Portions of this chart were entered by a medical education specialist. I personally performed the HPI, MDM, and PE. I have reviewed the document and agree with the contents.
[2017-02-13 18:17] LABS: % IMMATURE GRANULYOCYTES 0.4 % (0.0-1.1); ABSOLUTE IMMATURE GRANULOCYTES 0.04 10^3/uL (0.00-0.10); ADD DIFF? NO; ADD MORPH? NO; ADD SCAN? NO; ATYPICAL LYMPHOCYTE FLAG 0 (0-99); FRAGMENT RBC FLAG 0 (0-99); HEMATOCRIT 42.4 % (38.0-47.0); HEMOGLOBIN 13.9 g/dL (12.6-16.3); LEFT SHIFT FLG 0 (0-99); LIPEMIA HEMOLYSIS FLAG 80 (0-99); MEAN CELL HEMOGLOBIN 28.4 pg (27.9-34.1); MEAN CELL HEMOGLOBIN CONCENTR. 32.8 g/dL (32.4-36.7); MEAN CELL VOLUME 86.7 fL (81.5-99.8); MEAN PLATELET VOLUME 10.5 fL (8.7-11.7); PLATELET CLUMPS FLAG 10 (0-99); PLATELET COUNT 264 10^3/uL (150-400); RED BLOOD CELL COUNT 4.89 10^6/uL (4.18-5.33); RED CELL DISTRIBUTION WIDTH 15.7 % (11.5-15.2)
[2017-02-13 18:30] LABS: INR 1.04 (0.83-1.16); PROTIME(PATIENT) 13.5 SEC (12.0-15.0)
[2017-02-13 18:31] LABS: APTT 26.1 SEC (23.0-38.0)
[2017-02-13 18:35] LABS: ANION GAP 13 mEq/L (8-16); BILIRUBIN,TOTAL 0.8 mg/dL (0.1-1.4); CALCIUM 9.8 mg/dL (8.5-10.4); CARBON DIOXIDE 19 mEq/l (22-31); CHLORIDE 107 mEq/L (97-110); CREATININE 0.9 mg/dL (0.6-1.0); GLOMERULAR FILTRATION RATE > 60; GLUCOSE 152 mg/dL (70-100); SODIUM 139 mEq/L (134-144)
[2017-02-13] MEDS ORDERED: NS 1,000 ML IV ONE ×2 (19:34→19:36)
[2017-02-13 19:48] LABS: COLOR YELLOW; LEUKOCYTE ESTERASE,URINE NEGATIVE (NEGATIVE); NITRITE,URINE NEGATIVE (NEGATIVE)
[2017-02-13 19:51] LABS: MUCUS TRACE /lpf (NONE-1+); WBC,URINE NONE SEEN /hpf (0-3)
--- NOTE | 2017-02-13 20:07 | PDGENHP ---
History and Physical - Chief Complaint Altered mental status - History of Present Illness This is a 76-year-old female with history of COPD who was brought into the emergency department by her daughter after she was noted to be confused and lethargic while out at the [place] festival today. During the time of my exam the patient is alone in her room. She is unable to tell me why she is here at the hospital. All history was obtained via my discussion with Dr. Dutta in the emergency department and review of ER notes. Reportedly at the [place] festiv[place] the patient was unable to wheel herself in her wheelchair which is unusual for her and had to be pushed by her daughter. Her speech was described as garbled. [place] is ordered to be on continuous oxygen but does not not wear it when she is out. During the time of my exam the patient states she feels well. She denies any fevers or chills. She denies any chest pain or shortness of breath. She denies any nausea or vomiting. She denies any urinary complaints. She denies any new numbness or weakness. History Information - Allergies/Home Medication List Allergies/Adverse Reactions: folic acid Allergy (Verified 02/13/17 17:52) Flushing thiamine (vitamin B1) Allergy (Verified 02/13/17 17:52) Rash Home Medications: Albuterol [Proventil Inhaler HFA (*)] 1 - 2 puffs IH Q4H PRN 12/07/16 [Last Taken 12/07/16] Alendronate Sodium [Fosamax 70 MG (*)] 70 mg PO SA@0700 12/07/16 [Last Taken ] Baclofen [Baclofen 10 mg (*)] 10 mg PO DAILY 12/07/16 [Last Taken 12/07/16] DULoxetine [Cymbalta 30 MG (*)] 30 mg PO DAILY 12/07/16 [Last Taken 12/07/16] Fenofibric Acid (Choline) [TRILIPIX] 135 mg PO DAILY 12/07/16 [Last Taken ] Losartan Potassium [Cozaar 50 mg (*)] 50 mg PO DAILY 12/07/16 [Last Taken ] Potassium Cl [Klor-Con 20 meq (*)] 20 meq PO DAILY 12/07/16 [Last Taken 12/07/16 ] Promethazine HCl [Phenergan 12.5mg tab] 12.5 mg PO DAILY PRN 12/07/16 [Last Taken 11/23/16] Simvastatin [Zocor] 10 mg PO DAILY 12/07/16 [Last Taken 12/07/16] Temazepam [Restoril 15 MG (*)] 15 mg PO HS 12/07/16 [Last Taken 12/06/16] Tiotropium Inhaler [Spiriva Handihaler] 18 mcg IH DAILY 12/07/16 [Last Taken ] metFORMIN HCL [Glucophage 500 mg (*)] 500 mg PO DAILY 12/07/16 [Last Taken 12/07] I have personally reviewed and updated: family history, medical history, social history, surgical history - Past Medical History Additional medical history: COPD. Chronic respiratory failure on 3 L continuous O2. HTN. HLD. DM 2 on oral meds only. chronic lower back pain, lumbar radiculopathy L worse than R. hospitalization in November of 2016 for influenza B - Surgical History Additional surgical history: 2 lumbar surgeries. R foot repair. appendectomy. L wrist repair - Family History Additional family history: Daughter : CHF/CAD - Social History Smoking Status: Heavy smoker Alcohol Use: None Drug Use: None Additional social history: patient currently lives with her daughter and her son -in-law, uses a cane or walker to ambulate when outside of her home Review of Systems ROS: 10pt was reviewed & negative except for what was stated in HPI & below Physical Exam Temp Pulse Resp BP Pulse Ox 38.3 C 90 20 148/87 H 90 L 02/13/17 19:29 02/13/17 19:29 02/13/17 19:29 02/13/17 19:29 02/13/17 19:29 Constitutional: no apparent distress, appears nourished, not in pain, chronically ill appearing Eyes: PERRL, anicteric sclera, EOMI Ears, Nose, Mouth, Throat: moist mucous membranes, hearing normal, ears appear normal, no oral mucosal ulcers Cardiovascular: regular rate and rhythym, no murmur, rub, or gallop, No edema Respiratory: no respiratory distress, reduced air movement, expiratory wheeze, No rhonchi Gastrointestinal: normoactive bowel sounds, soft, non-tender abdomen, no palpable masses, No guarding, No rebound Skin: warm, normal color, no rashes or abrasions, no fluctuance, no induration, No mottled Musculoskeletal: full muscle strength, no muscle tenderness, normal joint ROM, no joint effusions Neurologic: CN II-XII Intact, other ( appears confuse oriented to person and place), No facial droop Psychiatric: encephalopathic Lymph, Heme, Immunologic: no cervical LAD, no supraclavicular LAD Lab Data & Imaging Review 02/13/17 18:05 02/13/17 18:05 WBC 9.98 10^3/uL (3.80-9.50) H 02/13/17 18:05 RBC 4.89 10^6/uL (4.18-5.33) 02/13/17 18:05 Hgb 13.9 g/dL (12.6-16.3) 02/13/17 18:05 Hct 42.4 % (38.0-47.0) 02/13/17 18:05 MCV 86.7 fL (81.5-99.8) 02/13/17 18:05 MCH 28.4 pg (27.9-34.1) 02/13/17 18:05 MCHC 32.8 g/dL (32.4-36.7) 02/13/17 18:05 RDW 15.7 % (11.5-15.2) H 02/13/17 18:05 Plt Count 264 10^3/uL (150-400) 02/13/17 18:05 MPV 10.5 fL (8.7-11.7) 02/13/17 18:05 Neut % (Auto) 82.7 % (39.3-74.2) H 02/13/17 18:05 Lymph % (Auto) 8.8 % (15.0-45.0) L 02/13/17 18:05 [place] % (Auto) 7.7 % (4.5-13.0) 02/13/17 18:05 Eos % (Auto) 0.0 % (0.6-7.6) L 02/13/17 18:05 Baso % (Auto) 0.4 % (0.3-1.7) 02/13/17 18:05 Nucleat RBC Rel Count 0.0 % (0.0-0.2) 02/13/17 18:05 Absolute Neuts (auto) 8.25 10^3/uL (1.70-6.50) H 02/13/17 18:05 Absolute Lymphs (auto) 0.88 10^3/uL (1.00-3.00) L 02/13/17 18:05 Absolute Monos (auto) 0.77 10^3/uL (0.30-0.80) 02/13/17 18:05 Absolute Eos (auto) 0.00 10^3/uL (0.03-0.40) L 02/13/17 18:05 Absolute Basos (auto) 0.04 10^3/uL (0.02-0.10) 02/13/17 18:05 Absolute Nucleated RBC 0.00 10^3/uL (0-0.01) 02/13/17 18:05 Immature Gran % 0.4 % (0.0-1.1) 02/13/17 18:05 Immature Gran # 0.04 10^3/uL (0.00-0.10) 02/13/17 18:05 PT 13.5 SEC (12.0-15.0) 02/13/17 18:05 INR 1.04 (0.83-1.16) 02/13/17 18:05 APTT 26.1 SEC (23.0-38.0) 02/13/17 18:05 VBG Lactic Acid 1.1 mmol/L (0.7-2.1) D 02/13/17 18:55 Sodium 139 mEq/L (134-144) 02/13/17 18:05 Potassium 4.0 mEq/L (3.5-5.2) 02/13/17 18:05 Chloride 107 mEq/L (97-110) 02/13/17 18:05 Carbon Dioxide 19 mEq/l (22-31) L 02/13/17 18:05 Anion Gap 13 mEq/L (8-16) 02/13/17 18:05 BUN 16 mg/dL (7-23) 02/13/17 18:05 Creatinine 0.9 mg/dL (0.6-1.0) 02/13/17 18:05 Estimated GFR > 60 02/13/17 18:05 Glucose 152 mg/dL (70-100) H 02/13/17 18:05 Calcium 9.8 mg/dL (8.5-10.4) 02/13/17 18:05 Total Bilirubin 0.8 mg/dL (0.1-1.4) 02/13/17 18:05 Urine Color YELLOW 02/13/17 19:25 Urine Appearance CLEAR 02/13/17 19:25 Urine pH 5.0 (5.0-7.5) 02/13/17 19:25 Ur Specific [place] 1.016 (1.002-1.030) 02/13/17 19:25 Urine Protein 2+ (NEGATIVE) H 02/13/17 19:25 Urine Ketones NEGATIVE (NEGATIVE) 02/13/17 19:25 Urine Blood NEGATIVE (NEGATIVE) 02/13/17 19:25 Urine Nitrate NEGATIVE (NEGATIVE) 02/13/17 19:25 Urine Bilirubin NEGATIVE (NEGATIVE) 02/13/17 19:25 Urine Urobilinogen 4.0 EU (0.2-1.0) H 02/13/17 19:25 Ur Leukocyte Esterase NEGATIVE (NEGATIVE) 02/13/17 19:25 Urine RBC 1-3 /hpf (0-3) 02/13/17 19:25 Urine WBC NONE SEEN /hpf (0-3) 02/13/17 19:25 Ur Epithelial Cells TRACE /lpf (NONE-1+) 02/13/17 19:25 Urine Mucus TRACE /lpf (NONE-1+) 02/13/17 19:25 Urine Glucose NEGATIVE (NEGATIVE) 02/13/17 19:25 Visualized and Interpreted Chest x-ray results: Yes Chest X-Ray results: no infiltrate, normal Visualized and Interpreted imaging results: Yes Interpretation: head CT was reviewed and negative for acute findings Assessment & Plan Assessment: this 76-year-old female with history of COPD and chronic respiratory failure presenting with: # acute encephalopathy in the setting of fever and elevated lactic acid without any obvious localizing symptoms for infection query viral illness versus dehydration versus hypoxemia given her noncompliance with supplemental oxygen plan: - Monitor for signs symptoms of infection - follow-up culture results - consider repeating a flu swab if fever persists - supplemental oxygen # diabetes mellitus to plan: - Monitor blood sugars - continue home regime # history of hypertension plan: - Monitor blood pressure and continue medications # history of chronic respiratory failure and COPD plan: - Monitor oxygen saturations and continue with supplemental oxygen as needed disposition: Place in observation
[2017-02-13] MEDS ORDERED: ONDANSETRON 4 MG/2 ML VIAL IVP PRN (20:13)
[2017-02-13] MEDS ORDERED: ACETAMINOPHEN 325 MG TAB PO PRN (20:13)
[2017-02-13] MEDS ORDERED: IOPAMIDOL (ISOVUE 370) 100 ML BTL IV ONE (20:24)
[2017-02-13] MEDS ORDERED: LORazepam 2 MG/ML INJ IVP ONE ×2 (20:37→20:55)
[2017-02-13] MEDS ORDERED: fentaNYL 100 MCG/2 ML INJ ONE (20:59)
[2017-02-13] MEDS ORDERED: fentaNYL 100 MCG/2 ML INJ IVP ONE (21:05)
[2017-02-13] MEDS ORDERED: IPRATROPIUM/ALBUTEROL 3 ML DEYVIAL IH PRN (22:15)
[2017-02-13] MEDS ORDERED: ACETAMINOPHEN 650 MG SUPP PR PRN (22:15)
[2017-02-13] MEDS ORDERED: D5W 1/2 NS W/ 20 KCl/L 1,000 ML IV SCH (22:15)
[2017-02-14 06:00] LABS: % IMMATURE GRANULYOCYTES 0.3 % (0.0-1.1); ABSOLUTE IMMATURE GRANULOCYTES 0.02 10^3/uL (0.00-0.10); ADD DIFF? NO; ADD MORPH? NO; ADD SCAN? NO; ATYPICAL LYMPHOCYTE FLAG 10 (0-99); FRAGMENT RBC FLAG 0 (0-99); HEMATOCRIT 37.2 % (38.0-47.0); HEMOGLOBIN 11.8 g/dL (12.6-16.3); LEFT SHIFT FLG 0 (0-99); LIPEMIA HEMOLYSIS FLAG 80 (0-99); MEAN CELL HEMOGLOBIN CONCENTR. 31.7 g/dL (32.4-36.7); MEAN CELL VOLUME 88.4 fL (81.5-99.8); MEAN PLATELET VOLUME 10.3 fL (8.7-11.7); PLATELET CLUMPS FLAG 0 (0-99); PLATELET COUNT 204 10^3/uL (150-400); RED BLOOD CELL COUNT 4.21 10^6/uL (4.18-5.33); RED CELL DISTRIBUTION WIDTH 15.7 % (11.5-15.2)
[2017-02-14 06:17] LABS: ALANINE AMINOTRANSFERASE 25 IU/L (9-52); ALKALINE PHOSPHATASE 58 IU/L (38-126); ASPARTATE AMINOTRANSFERASE 13 IU/L (14-46); BILIRUBIN,TOTAL 0.6 mg/dL (0.1-1.4); CALCIUM 8.8 mg/dL (8.5-10.4); CARBON DIOXIDE 20 mEq/l (22-31); CHLORIDE 112 mEq/L (97-110); CREATININE 0.7 mg/dL (0.6-1.0); GLOMERULAR FILTRATION RATE > 60; GLUCOSE 141 mg/dL (70-100); SODIUM 139 mEq/L (134-144); TOTAL PROTEIN 5.8 g/dL (6.3-8.2)
[2017-02-14 06:23] LABS: ANION GAP 7 mEq/L (8-16); POTASSIUM 4.1 mEq/L (3.5-5.2)
[2017-02-14] MEDS: LOSARTAN POTASSIUM 50 MG TAB PO SCH (11:32)
[2017-02-14] MEDS ORDERED: ALPRAZolam 0.5 MG TAB PO PRN (13:46)
--- NOTE | 2017-02-14 13:51 | HOSPPROG ---
Hospitalist Progress Note Assessment/Plan: * acute encephalopathy * Probably related to extra pain pill that she took yesterday before going to the [employer] festival plus probably some element of dehydration * Appears back to baseline mental status pate * No signs of infection * Will continue to monitor * generalized weakness * Physical therapy is recommending penitentiary * Will continue to watch * COPD * Mild exacerbation * Continue nebulizers and home medicines * chronic back pain * hypertension Subjective: Feels pretty good today. Some wheezing. Does not remember yesterday at all states that she took 2 pain pills instead of 1 yesterday morning Objective: Vital Signs Temp Pulse Resp BP Pulse Ox 37.3 C 76 24 H 172/104 H 89 L 02/14/17 08:00 02/14/17 08:00 02/14/17 08:00 02/14/17 08:00 02/14/17 08:44 Laboratory Results 02/14/17 05:30 02/14/17 05:30 02/13/17 02/14/17 02/15/17 05:59 05:59 05:59 Intake Total 2750 Output Total 1850 Balance 900 PT 13.5 SEC (12.0-15.0) 02/13/17 18:05 INR 1.04 (0.83-1.16) 02/13/17 18:05 - Physical Exam Constitutional: no apparent distress, appears nourished, not in pain Eyes: anicteric sclera, EOMI Ears, Nose, Mouth, Throat: moist mucous membranes, hearing normal, ears appear normal Cardiovascular: regular rate and rhythym, no murmur, rub, or gallop Respiratory: no respiratory distress, no rales or rhonchi, other (Slight expiratory wheezing) Gastrointestinal: normoactive bowel sounds, soft, non-tender abdomen, no palpable masses Skin: warm Neurologic: AAOx3 Psychiatric: interacting appropriately, not anxious, not encephalopathic, thought process linear ICD10 Worksheet Patient Problems: Problems Problem Status Onset Altered mental status Acute Fever Acute Acute bronchitis Acute Chronic obstructive pulmonary disease with acute exacerbation Acute Dyspnea Acute
[2017-02-14] MEDS: DULoxetine 30 MG CAP PO SCH (14:35)
[2017-02-14] MEDS: ENOXAPARIN 40 MG/0.4 ML SYR SC SCH (14:35)
[2017-02-14] MEDS: amLODIPine BESYLATE 5 MG TAB PO SCH (14:35)
[2017-02-14] MEDS: BUDESONIDE/FORMOTEROL 160/4.5 60 PUFFS/MDI IH SCH ×2 (16:24→21:28)
[2017-02-14] MEDS: TIOTROPIUM INHALER 18 MCG/DOSE 5 DOSE/MDI IH SCH (16:24)
[2017-02-14] MEDS: ACETAMINOPHEN 325 MG TAB PO PRN (18:01)
[2017-02-14] MEDS: ERTAPENEM 1 GM in NS 100 ML IV SCH (18:03)
[2017-02-14] MEDS: guaiFENesin 600 MG TAB.ER PO SCH (21:19)
[2017-02-14] MEDS: traZODone 100 MG TAB PO SCH (22:03)
[2017-02-15 06:46] LABS: % IMMATURE GRANULYOCYTES 0.4 % (0.0-1.1); ABSOLUTE IMMATURE GRANULOCYTES 0.03 10^3/uL (0.00-0.10); ADD DIFF? NO; ADD MORPH? NO; ADD SCAN? NO; ATYPICAL LYMPHOCYTE FLAG 0 (0-99); FRAGMENT RBC FLAG 0 (0-99); HEMOGLOBIN 12.8 g/dL (12.6-16.3); LEFT SHIFT FLG 0 (0-99); LIPEMIA HEMOLYSIS FLAG 80 (0-99); MEAN CELL HEMOGLOBIN 28.6 pg (27.9-34.1); MEAN CELL HEMOGLOBIN CONCENTR. 32.8 g/dL (32.4-36.7); MEAN CELL VOLUME 87.2 fL (81.5-99.8); MEAN PLATELET VOLUME 10.3 fL (8.7-11.7); PLATELET CLUMPS FLAG 0 (0-99); PLATELET COUNT 219 10^3/uL (150-400); RED BLOOD CELL COUNT 4.47 10^6/uL (4.18-5.33); RED CELL DISTRIBUTION WIDTH 15.5 % (11.5-15.2)
[2017-02-15 06:59] LABS: ANION GAP 9 mEq/L (8-16); CALCIUM 9.3 mg/dL (8.5-10.4); CARBON DIOXIDE 21 mEq/l (22-31); CHLORIDE 110 mEq/L (97-110); CREATININE 0.8 mg/dL (0.6-1.0); GLOMERULAR FILTRATION RATE > 60; GLUCOSE 93 mg/dL (70-100); POTASSIUM 4.1 mEq/L (3.5-5.2); SODIUM 140 mEq/L (134-144)
[2017-02-15] MEDS: ERTAPENEM 1 GM in NS 100 ML IV SCH (07:45)
[2017-02-15] MEDS: ENOXAPARIN 40 MG/0.4 ML SYR SC SCH (07:52)
[2017-02-15] MEDS: DULoxetine 30 MG CAP PO SCH (07:52)
[2017-02-15] MEDS: ATORVASTATIN CALCIUM 10 MG TAB PO SCH (07:53)
[2017-02-15] MEDS: guaiFENesin 600 MG TAB.ER PO SCH ×2 (07:53→20:11)
[2017-02-15] MEDS: LOSARTAN POTASSIUM 50 MG TAB PO SCH ×2 (07:53→08:03)
[2017-02-15] MEDS: POTASSIUM CL 20 MEQ TAB PO SCH (07:53)
[2017-02-15] MEDS: amLODIPine BESYLATE 5 MG TAB PO SCH (07:53)
[2017-02-15] MEDS: PARoxetine HCL 20 MG TAB PO SCH (07:53)
[2017-02-15] MEDS: PARoxetine HCL 10 MG TAB PO SCH (08:34)
[2017-02-15] MEDS ORDERED: NON-FORMULARY NEW DRUG (Simvastatin [Zocor] 20 MG) PO SCH (09:00)
[2017-02-15] MEDS: TIOTROPIUM INHALER 18 MCG/DOSE 5 DOSE/MDI IH SCH (09:39)
[2017-02-15] MEDS: BUDESONIDE/FORMOTEROL 160/4.5 60 PUFFS/MDI IH SCH ×2 (09:39→20:32)
--- NOTE | 2017-02-15 13:11 | HOSPPROG ---
Hospitalist Progress Note Assessment/Plan: * acute encephalopathy * Probably related to extra pain pill that she took before going to the [place] festival plus probably some element of dehydration * Appears back to baseline mental status pate * No signs of infection * Will continue to monitor * generalized weakness * Physical therapy is recommending snf * Will continue to watch * COPD * Mild exacerbation * Continue nebulizers and home medicines * chronic back pain * hypertension Subjective: Feels a lot better today. Feels that she is stronger. No dyspnea Objective: Vital Signs Temp Pulse Resp BP Pulse Ox 36.8 C 84 19 169/70 H 95 02/15/17 07:20 02/15/17 07:20 02/15/17 07:20 02/15/17 07:20 02/15/17 07:20 Microbiology 02/14/17 18:00 Respiratory Panel (PCR) - Final Nasal, Sinus - [place] Viral Transport No Organism Detected Laboratory Results 02/15/17 06:30 02/15/17 06:30 02/14/17 02/15/17 02/16/17 05:59 05:59 05:59 Intake Total 2750 200 Output Total 1850 502 Balance 900 -302 PT 13.5 SEC (12.0-15.0) 02/13/17 18:05 INR 1.04 (0.83-1.16) 02/13/17 18:05 - Physical Exam Constitutional: no apparent distress, appears nourished, not in pain Eyes: anicteric sclera, EOMI Ears, Nose, Mouth, Throat: moist mucous membranes, hearing normal Cardiovascular: regular rate and rhythym, no murmur, rub, or gallop, systolic murmur Respiratory: no respiratory distress, no rales or rhonchi, reduced air movement (Better air movement), No expiratory wheeze Gastrointestinal: normoactive bowel sounds, soft, non-tender abdomen, no palpable masses Skin: warm Neurologic: AAOx3 Psychiatric: interacting appropriately, not anxious, not encephalopathic, thought process linear ICD10 Worksheet Patient Problems: Problems Problem Status Onset Altered mental status Acute Fever Acute Acute bronchitis Acute Chronic obstructive pulmonary disease with acute exacerbation Acute Dyspnea Acute
[2017-02-15] MEDS: ACETAMINOPHEN 325 MG TAB PO PRN (20:11)
[2017-02-15] MEDS: traZODone 100 MG TAB PO SCH (20:12)
[2017-02-15 20:27] VITALS: TEMP 98.2
[2017-02-16] MEDS: ENOXAPARIN 40 MG/0.4 ML SYR SC SCH (09:09)
[2017-02-16] MEDS: amLODIPine BESYLATE 5 MG TAB PO SCH (09:10)
[2017-02-16] MEDS: PARoxetine HCL 20 MG TAB PO SCH (09:10)
[2017-02-16] MEDS: PARoxetine HCL 10 MG TAB PO SCH (09:10)
[2017-02-16] MEDS: POTASSIUM CL 20 MEQ TAB PO SCH (09:10)
[2017-02-16] MEDS: ATORVASTATIN CALCIUM 10 MG TAB PO SCH (09:10)
[2017-02-16] MEDS: guaiFENesin 600 MG TAB.ER PO SCH (09:10)
[2017-02-16] MEDS: LOSARTAN POTASSIUM 50 MG TAB PO SCH ×2 (09:11→09:13)
[2017-02-16] MEDS: DULoxetine 30 MG CAP PO SCH (09:11)
[2017-02-16 09:23] VITALS: BP 171/79; PULSE 78; RESP 18; O2SAT 96
--- NOTE | 2017-02-16 09:24 | PDIAF ---
- Diagnosis Diagnosis: encephalopathy Code Status: Full Code - Medication Management Discharge Medications: Medications to Continue on Transfer Albuterol [Proventil Inhaler HFA (*)] 1 - 2 puffs IH Q4H PRN 12/07/16 [Last Taken 12/07/16] Alendronate Sodium [Fosamax 70 MG (*)] 70 mg PO SA@0700 12/07/16 [Last Taken ] DULoxetine [Cymbalta 30 MG (*)] 30 mg PO DAILY 12/07/16 [Last Taken 12/07/16] Fenofibric Acid (Choline) [TRILIPIX] 135 mg PO DAILY 12/07/16 [Last Taken ] Losartan Potassium [Cozaar 50 mg (*)] 50 mg PO DAILY 12/07/16 [Last Taken ] Potassium Cl [Klor-Con 20 meq (*)] 20 meq PO DAILY 12/07/16 [Last Taken 12/07/16 ] Promethazine HCl [Phenergan 12.5mg tab] 12.5 mg PO DAILY PRN 12/07/16 [Last Taken 11/23/16] Simvastatin [Zocor] 20 mg PO DAILY 12/07/16 [Last Taken 12/07/16] Tiotropium Inhaler [Spiriva Handihaler] 18 mcg IH DAILY 12/07/16 [Last Taken ] guaiFENesin [Mucinex 600 MG (*)] 1,200 mg PO BID #20 tab.er 12/09/16 [Last Taken Unknown] ALPRAZolam [Xanax 0.5 MG (*)] 0.5 mg PO HS PRN 02/14/17 [Last Taken Unknown] Amlodipine Besylate [Norvasc] 5 mg PO DAILY 02/14/17 [Last Taken Unknown] Budesonide/Formoterol 160/4.5 [Symbicort 160-4.5 Mcg Inh (*)] 1 puffs IH BID [Last Taken Unknown] Paroxetine HCl 10 mg PO DAILY 02/14/17 [Last Taken Unknown] Paroxetine HCl 20 mg PO DAILY 02/14/17 [Last Taken Unknown] traZODone [traZODONE 100MG (*)] 150 mg PO HS 02/14/17 [Last Taken Unknown] Amoxicillin/Clavulanate Pot [Augmentin 875 MG TAB (*)] 875 mg PO BID #10 tab [Last Taken Unknown] Fpc Antibiotic Stop Date: 02/20/17 (5 days of abx) Discharge Medications: Refer to the Discharge Home Medication list for PRN reason. - Orders Services needed: Home Care, Physical Therapy, Occupational Therapy Home Care Face to Face: I certify that this patient was under my care and that I had the required [id number] encounter meeting the encounter requirements on the discharge day. My findings support the fact that the patient is homebound as defined in CMS Chapter 7 Medicare Benefits Manual 30.1.1, The condition of the patient is such that there exists a normal inability to leave home and consequently, leaving home would require a considerable and taxing effort. Diet Texture: Regular Texture Diet, Thin Liquids, Meds Whole in Puree - Follow Up Care Current Providers and Referrals: UNKNOWN,PCP [Other] - As per Instructions
[2017-02-16] MEDS: TIOTROPIUM INHALER 18 MCG/DOSE 5 DOSE/MDI IH SCH (09:25)
[2017-02-16] MEDS: BUDESONIDE/FORMOTEROL 160/4.5 60 PUFFS/MDI IH SCH (09:25)
--- NOTE | 2017-02-16 10:06 | GDS ---
[f rep st] DISCHARGE SUMMARY DISCHARGE DIAGNOSES: 1. Acute encephalopathy, rapidly resolved. 2. Possible bacterial bronchitis. 3. Mild chronic obstructive pulmonary disease exacerbation. 4. Chronic back pain. 5. Hypertension. 6. Bilateral carotid stenosis. HISTORY: This is a 76-year-old female with a history of COPD and chronic pain. She was at the [employer] and had altered mental status and weakness. HOSPITAL COURSE: Patient initially presented with mild elevated lactate as well as a fever. Her est x-ray suggested bronchitis but no pneumonia. Urine was negative. Blood cultures have remained negative. She defervesced fairly quickly. The following day, her mental status improved fairly ang matically. She did remain fairly wheezy with some cough. She was started on antibiotics at that ti me and continued to improve. I suspect there might be an element of bacterial bronchitis. We will continue antibiotics for another 5 more days. Patient has remained fairly weak and we are recommending detention facility for further rehab. She will be discharged there today. The patient did have CTAs of her neck and head which did 50-60% stenosis of the carotids on the left . FOLLOWUP INSTRUCTIONS: She is instructed to follow up with her primary care doctor when she gets ou t of rehab. Greater than 30 minutes were spent on discharge. /[id number]/MODL
== END 2017-02-16 14:25 | DRG 71 ==
LOC: EEVIPCON 19:44 → F2N 21:40
PROVIDERS: ADMIT Family Medicine; ATTEND Internal Medicine
DX: G93.40 Encephalopathy, unspecified (principal); J44.0 Chronic obstructive pulmonary disease with (acute) lower respiratory infection; J44.1 Chronic obstructive pulmonary disease with (acute) exacerbation; J40 Bronchitis, not specified as acute or chronic; M54.9 Dorsalgia, unspecified; I10 Essential (primary) hypertension; I65.23 Occlusion and stenosis of bilateral carotid arteries; E11.9 Type 2 diabetes mellitus without complications; E78.00 Pure hypercholesterolemia, unspecified; M79.7 Fibromyalgia; F41.9 Anxiety disorder, unspecified
CPT/HCPCS: 92523-GN; 92526-GN; 92610-GN; 97116-GP; 97162-GP; 97166-GO; 97535-GO; G0378; G8978-GP-CK; G8979-GP-CI; G8987-GO-CL; G8988-GO-CI; G8996-GN-CI; G8997-GN-CI; G9168-GN-CK; G9169-GN-CJ; G9170-GN-CK; J1335; J1650; J2060; J3010; Q9967

== ENCOUNTER → 2017-04-06 | Outpatient (CLI) | payer OTHER, MEDICAID | LOC: FIMAGING 15:57 | PROVIDERS: ATTEND Internal Medicine | DX: M16.11 Unilateral primary osteoarthritis, right hip (principal); Z98.1 Arthrodesis status ==

== ENCOUNTER 2017-10-12 11:24 | Emergency (ER) | payer OTHER, MEDICAID ==
[2017-10-12] MEDS ORDERED: IPRATROPIUM/ALBUTEROL 3 ML DEYVIAL IH ONE (11:32)
[2017-10-12] MEDS ORDERED: methylPREDNISolone SOD SUCC 125 MG/2 ML VIAL IVP ONE (11:32)
--- NOTE | 2017-10-12 11:32 | EDPHY ---
H & P Time Seen by Provider: 10/12/17 11:31 HPI/ROS: HPI: This is a 77-year-old female who presents with Chief Complaint: Dizziness and shortness of breath x2 days Location: Chest Quality: dyspnea Duration: 2 days Signs and Symptoms: + shortness of breath at rest, + shortness of breath on exertion, + chronic cough, no chest pain, no palpitations, no lower extremity edema, + wheezing, no orthopnea, no paroxysmal nocturnal dyspnea, + subjective fever, no injury/trauma, no hemoptysis Timing: Acute on chronic Severity: moderate Context: Patient presents via EMS with complaints of worsening shortness of breath on exertion and rest over the last 2 days. Patient reports she 0 is feels out of breath when she moves around or walks around but has worsened. Also notes a subjective fever last night. She has been using her albuterol nebulizer and inhalers without improvement. She has a history of COPD, tobacco use, hypertension, hyperlipidemia, chronic respiratory failure on 3 L nasal cannula continuously and reports that she has had increased her oxygen to 4 L. she had an admission in November of 2016 for similar presentation in which an echocardiogram showed EF is 65-70%. She denies any cardiac history or prior intubations. She did not receive her influenza vaccine this year. EMS gave her a DuoNeb on route and noted O2 sats 90-91% on room air. Uses walker to aid ambulation at baseline. O2 sats 91% on room air. Modifying Factors: See above Comment: ROS: see HPI Constitutional: No fever, no chills, no weight loss Eyes: No blurred vision Respiratory: + shortness of breath, + cough Cardiovascular: No chest pain, no palpitations, no lower extremity edema Gastrointestinal: No nausea, no vomiting, no diarrhea Genitourinary: No dysuria Extremities: No myalgias Neurologic: No weakness, no numbness Skin: No rashes Hematologic: No bruising, no bleeding MEDICAL/SURGICAL/SOCIAL HISTORY: Medical/surgical history: anxiety, COPD, HTN, high cholesterol, FIbromyalgia, depression, Diabetes, right ankle surgery, back surgery, breast cancer, left lumpectomy Social history: Retired. Has support from her daughter. CONSTITUTIONAL: Elderly chronically ill-appearing, mild distress, white female awake and alert, no obvious distress HEENT: Atraumatic and normocephalic, PERRL, EOMI. Tympanic membranes clear. Oropharynx clear, no exudate and moist pink mucosa. Airway patent. No lymphadenopathy. No meningismus. No JVD. Cardiovascular: Normal S1/S2, regular rate, regular rhythm, without murmur rub or gallop. PULMONARY/CHEST: Symmetrical and nontender. Fair air movement. Expiratory wheezing noted upon arrival throughout. No accessory muscle usage. ABDOMEN: Soft, nondistended, nontender, no rebound, no guarding, no peritoneal signs, no masses or organomegaly. No CVAT. EXTREMITIES: 2/2 pulses, strength 5/5, no deformities, no clubbing, no cyanosis or edema. NEUROLOGICAL: no focal neuro deficits. GCS 15. SKIN: Warm and dry, no erythema. no rash. Good capillary refill. Source: Patient, Family (Daughter), EMS Exam Limitations: No limitations - Medical/Surgical History Hx Asthma: Yes Hx Chronic Respiratory Disease: Yes Hx Diabetes: Yes Hx Cardiac Disease: No Hx Renal Disease: No Hx Cirrhosis: No Hx Alcoholism: No Hx HIV/AIDS: No Hx Splenectomy or Spleen Trauma: No Other PMH: anxiety, COPD, HTN, high cholesterol, FIbromyalgia, depression, Diabetes, right ankle surgery, back surgery, breast cancer, left lumpectomy - Social History Smoking Status: Heavy smoker Constitutional: Initial Vital Signs O2 Sat (%) 93 10/12/17 11:25 O2 Delivery Mode Nasal Cannula O2 (L/minute) 4 Allergies/Adverse Reactions: folic acid Allergy (Verified 10/12/17 12:36) Flushing thiamine (vitamin B1) Allergy (Verified 10/12/17 12:36) Rash Home Medications: Medication Instructions Recorded Albuterol [Proventil Inhaler HFA 1 - 2 puffs IH Q4H PRN 12/07/16 (*)] Alendronate Sodium [Fosamax 70 MG 70 mg PO SA@0700 12/07/16 (*)] DULoxetine [Cymbalta 30 MG (*)] 30 mg PO DAILY 12/07/16 Fenofibric Acid (Choline) 135 mg PO DAILY 12/07/16 [TRILIPIX] Losartan Potassium [Cozaar 50 mg 50 mg PO DAILY 12/07/16 (*)] Potassium Cl [Klor-Con 20 meq (*)] 20 meq PO DAILY 12/07/16 Promethazine HCl [Phenergan 12.5mg 12.5 mg PO DAILY PRN 12/07/16 tab] Simvastatin [Zocor] 20 mg PO DAILY 12/07/16 Tiotropium Inhaler [Spiriva 18 mcg IH DAILY 12/07/16 Handihaler] guaiFENesin [Mucinex 600 MG (*)] 1,200 mg PO BID #20 tab.er 12/09/16 ALPRAZolam [Xanax 0.5 MG (*)] 0.5 mg PO HS PRN 02/14/17 Amlodipine Besylate [Norvasc] 5 mg PO DAILY 02/14/17 Budesonide/Formoterol 160/4.5 1 puffs IH BID 02/14/17 [Symbicort 160-4.5 Mcg Inh (*)] Paroxetine HCl 10 mg PO DAILY 02/14/17 Paroxetine HCl 20 mg PO DAILY 02/14/17 traZODone [traZODONE 100MG (*)] 150 mg PO HS 02/14/17 Amoxicillin/Clavulanate Pot 875 mg PO BID #10 tab 02/16/17 [Augmentin 875 MG TAB (*)] levOFLOXACIN [Levaquin] 500 mg PO DAILY #5 tablet 10/12/17 predniSONE 50 mg PO DAILY #5 tablet 10/12/17 Medical Decision Making - Diagnostics Imaging Results: Imaging Impressions Chest X-Ray 10/12/17 11:33 Impression: Left lower lobe consolidation, suspicious for pneumonia. Chest/Thorax CTA 10/12/17 12:04 Impression: 1. No evidence of thrombopulmonary embolic disease. 2. Normal caliber atherosclerotic aorta. 3. Bibasilar atelectasis superimposed on bronchitis and minimal centrilobular emphysema. 4. No pneumonia or effusion. Findings discussed with Emergency Department physician, Leticia Keith on 2017, 13:30. Head CT 10/12/17 13:36 Impression: 1. No acute intracranial hemorrhage, subdural hematoma, or evidence of acute ischemia. 2. Partially calcified and cystic right cerebellopontine angle mass is unchanged since January 2017 and may represent an epidermoid cyst. Findings discussed with Emergency Department physician, Leticia Keith on 2017, 14:50. 12 lead EKG: Indication: Shortness of breath Rhythm: Normal sinus rhythm, rate 74 beats per minute Dozier: Left Intervals: Normal QRS: RBBB ST segments: Nonspecific changes INTERPRETATION: No acute ischemic change The 12 lead EKG was interpreted by myself and with attending. ED Course/Re-evaluation: EKG, chest x-ray, influenza test, labs, IV medications, nebulizer therapy O2 sats 88-91% on room air with mild respiratory distress. Given DuoNeb, IV Solu-Medrol 1215: Labs reviewed; no leukocytosis; D-dimer mildly elevated-CTA chest ordered. No signs of congestive heart failure/ACS Chest x-ray canceled. Creatinine 1.0; call by interventional radiology tech as GFR equivocal; 1 L normal saline given for hydration. 1225: O2 sats 97% on 3 L Influenza negative Will treat for COPD exacerbation; given fluoroquinolone as risk factors. Called by radiologist who advised that CTA shows no signs of PE/aortic dissection/pneumonia. Does show signs of bronchitic changes. 1335: Reassessed patient. Daughter now at bedside. Daughter concerned as patient is reporting some dizziness and bilateral vision changes over the last 2 -3 days with multiple falls at home. Patient reports it looks hazy. Last eye exam was 6 months ago and did show early signs of cataracts. Head CT scan ordered. Patient offered admission to further workup dizziness/weakness combined with COPD exacerbation but patient politely refuses to be admitted to the hospital as she has a follow-up appointment with her primary care provider tomorrow, strong family support, and feels better. Daughter reports she has physical therapy twice a week and feels safe taking her home. Head CT scan my read shows no acute intracranial process 1410: Again, offered patient admission. Daughter at bedside. Patient politely declined and is adamant she does not need to be admitted. Daughter consents to her wishes. This patient was seen under the supervision of my secondary supervising physician. I evaluated care for this patient independently. Differential Diagnosis: Shortness of breath including but not limited to pulmonary infectious process, COPD, asthma, pulmonary embolus and congestive heart failure. - Data Points Laboratory Results: Laboratory Results 10/12/17 11:36 10/12/17 11:36 10/12/17 10/12/17 10/12/17 11:47 11:36 11:36 WBC RBC Hgb Hct MCV MCH MCHC RDW Plt Count MPV Neut % (Auto) Lymph % (Auto) [place] % (Auto) Eos % (Auto) Baso % (Auto) Nucleat RBC Rel Count Absolute Neuts (auto) Absolute Lymphs (auto) Absolute Monos (auto) Absolute Eos (auto) Absolute Basos (auto) Absolute Nucleated RBC Immature Gran % Immature Gran # D-Dimer 0.91 ug/mLFEU H ug/mLFEU (0.00-0.50) Sodium 147 mEq/L H mEq/L (135-145) Potassium 4.7 mEq/L mEq/L (3.5-5.2) Chloride 105 mEq/L mEq/L (97-110) Carbon Dioxide 26 mEq/l mEq/l (22-31) Anion Gap 16 mEq/L mEq/L (8-16) BUN 14 mg/dL mg/dL (7-23) Creatinine 1.0 mg/dL mg/dL (0.6-1.0) Estimated GFR 54 Glucose 104 mg/dL H mg/dL (70-100) Calcium 10.3 mg/dL mg/dL (8.5-10.4) Total Bilirubin 0.6 mg/dL mg/dL (0.1-1.4) Conjugated Bilirubin 0.4 mg/dL mg/dL (0.0-0.5) Unconjugated Bilirubin 0.2 mg/dL mg/dL (0.0-1.1) AST 21 IU/L IU/L (14-46) ALT 30 IU/L IU/L (9-52) Alkaline Phosphatase 173 IU/L H IU/L (38-126) Troponin I 0.014 ng/mL ng/mL (0.000-0.034) NT-Pro-B Natriuret Pep 319 pg/mL pg/mL (0-450) Total Protein 8.0 g/dL g/dL (6.3-8.2) Albumin 4.3 g/dL g/dL (3.5-5.0) Nasal Influenza A PCR NEGATIVE FOR FLU A (NEGATIVE) Nasal Influenza B PCR NEGATIVE FOR FLU B (NEGATIVE) 10/12/17 11:36 WBC 7.24 10^3/uL 10^3/uL (3.80-9.50) RBC 5.17 10^6/uL 10^6/uL (4.18-5.33) Hgb 15.3 g/dL g/dL (12.6-16.3) Hct 45.1 % % (38.0-47.0) MCV 87.2 fL fL (81.5-99.8) MCH 29.6 pg pg (27.9-34.1) MCHC 33.9 g/dL g/dL (32.4-36.7) RDW 14.6 % % (11.5-15.2) Plt Count 222 10^3/uL 10^3/uL (150-400) MPV 10.6 fL fL (8.7-11.7) Neut % (Auto) 68.7 % % (39.3-74.2) Lymph % (Auto) 24.3 % % (15.0-45.0) [place] % (Auto) 5.7 % % (4.5-13.0) Eos % (Auto) 0.0 % L % (0.6-7.6) Baso % (Auto) 0.6 % % (0.3-1.7) Nucleat RBC Rel Count 0.0 % % (0.0-0.2) Absolute Neuts (auto) 4.98 10^3/uL 10^3/uL (1.70-6.50) Absolute Lymphs (auto) 1.76 10^3/uL 10^3/uL (1.00-3.00) Absolute Monos (auto) 0.41 10^3/uL 10^3/uL (0.30-0.80) Absolute Eos (auto) 0.00 10^3/uL L 10^3/uL (0.03-0.40) Absolute Basos (auto) 0.04 10^3/uL 10^3/uL (0.02-0.10) Absolute Nucleated RBC 0.00 10^3/uL 10^3/uL (0-0.01) Immature Gran % 0.7 % % (0.0-1.1) Immature Gran # 0.05 10^3/uL 10^3/uL (0.00-0.10) D-Dimer Sodium Potassium Chloride Carbon Dioxide Anion Gap BUN Creatinine Estimated GFR Glucose Calcium Total Bilirubin Conjugated Bilirubin Unconjugated Bilirubin AST ALT Alkaline Phosphatase Troponin I NT-Pro-B Natriuret Pep Total Protein Albumin Nasal Influenza A PCR Nasal Influenza B PCR Medications Given: Discontinued Medications Albuterol/Ipratropium (Duoneb) 3 ml IH EDNOW ONE Stop: 10/12/17 11:33 Last Admin: 10/12/17 11:43 Dose: 3 ml Sodium Chloride (Ns) 1,000 mls @ 0 mls/hr IV EDNOW ONE; Wide Open PRN Reason: Protocol Stop: 10/12/17 12:19 Last Admin: 10/12/17 12:28 Dose: 1,000 mls Levofloxacin (Levaquin) 500 mg PO EDNOW ONE PRN Reason: Protocol Stop: 10/12/17 13:39 Last Admin: 10/12/17 13:52 Dose: 500 mg Methylprednisolone Sodium Succinate (Solu-Medrol) 125 mg IVP EDNOW ONE Stop: 10/12/17 11:33 Last Admin: 10/12/17 11:43 Dose: 125 mg Departure - Departure Disposition: Home, Routine, Self-Care Clinical Impression: Tobacco use disorder, COPD with exacerbation, Dependence on supplemental oxygen , Cloudy vision Condition: Good Instructions: Prednisone (By mouth), Levofloxacin (By mouth), COPD (Chronic Obstructive Pulmonary Disease) (ED) Additional Instructions: Keep follow-up appointment with primary care provider tomorrow. Please refrain from smoking cigarettes while you are having a COPD exacerbation. Please consider smoking cessation altogether. Continue to use Albuterol inhaler/nebulizer and Spiriva inhaler as prescribed. Take all medications as directed until complete. Do not take Levaquin and Trazodone concomitantly due to adverse side effect. Please follow up with Ophthalmology if symptoms of visual cloudiness do not improve. If worsening shortness of breath, chest pain, or fever greater than 102 develops , return to the emergency room for evaluation. Referrals: PCP Not In,Dictionary [Medical Doctor] - 10/13/17 Prescriptions: levOFLOXACIN [Levaquin] 500 mg PO DAILY #5 tablet predniSONE 50 mg PO DAILY #5 tablet
[2017-10-12 11:41] LABS: PLATELET COUNT 222 10^3/uL (150-400)
--- NOTE | 2017-10-12 11:47 | CPEKG ---
Heart Rate: 74 RR Interval: 811 P-R Interval: 168 QRSD Interval: 128 QT Interval: 424 QTC Interval: 471 P Wilbraham: 74 QRS [place]ham: -90 T Wave Wil[place]ham: 35 EKG Severity - ABNORMAL ECG - EKG Impression: SINUS RHYTHM EKG Impression: PROBABLE LEFT ATRIAL ABNORMALITY EKG Impression: RIGHT BUNDLE BRANCH BLOCK Electronically Signed By: Reggie Walton 16-Oct-2017 09:37:09
[2017-10-12] MEDS ORDERED: NS 1,000 ML IV ONE (12:18)
[2017-10-12] MEDS ORDERED: IOPAMIDOL (ISOVUE 370) 100 ML BTL IV ONE (12:21)
[2017-10-12 13:56] VITALS: RESP 20; O2SAT 94
[2017-10-12 15:07] VITALS: BP 158/84; PULSE 82; TEMP 98.2
== END 2017-10-12 15:07 | disposition home or self-care (01) ==
LOC: EDUNIT#
DX: J44.1 Chronic obstructive pulmonary disease with (acute) exacerbation (principal); H53.8 Other visual disturbances; I10 Essential (primary) hypertension; F17.200 Nicotine dependence, unspecified, uncomplicated; Z85.3 Personal history of malignant neoplasm of breast; Z99.81 Dependence on supplemental oxygen
CPT/HCPCS: 70450; 71046; 71275; 93005; 96374; 99285; J2930; Q9967

== ENCOUNTER → 2017-10-20 | Outpatient (CLI) | payer OTHER | LOC: CIMAGING 10:23 | PROVIDERS: ATTEND Internal Medicine Geriatric Medicine | DX: Z12.31 Encounter for screening mammogram for malignant neoplasm of breast (principal); Z85.3 Personal history of malignant neoplasm of breast; Z80.3 Family history of malignant neoplasm of breast ==